=== PATIENT | male | born 1960 | race Caucasian/White ===

== ENCOUNTER 2019-08-08 21:27 | Observation (INO) | payer OTHER, SELFPAY ==
[2019-08-08 20:00] VITALS: BP 154/86; PULSE 73; RESP 16; TEMP 36.8; O2SAT 98; BMI 20.5
[2019-08-08 20:14] VITALS: PULSE 74
[2019-08-08 20:24] VITALS: BMI 20.6
--- NOTE | 2019-08-08 20:45 | PCM.HP.STD ---
Problem List (1) Chest pain Status: Acute History of Present Illness Date of Admission: 08/08/19 Chief Complaint: chest pain The patient is a 59 year old M with a significant history of hypertension who presented with excruciating episodic substernal chest pain that radiates to his right. His chest pain began a day before presentation. On the first day his chest pain started just after eating dinner. The next day which the day of presentation he went to work and because of chest pain he passed out. [facility] ED he was given 4 baby aspirin. Also he received nitroglycerin. His chest pain is relieved by taking Rere-Zamora. Also nitroglycerin gave him some relief. Associated with his symptoms is nausea. He denies vomiting. Also he has some associated diaphoresis. In June 2019 he was evaluated at a pulmonary hospital with an EGD. The EGD showed hiatal hernia. Also patient reports of acid reflux. Further he had normal stress test in June 2019 at [facility]. Patient was transferred to our hospital as other hospitals in the vicinity were full. Of note patient's father had multiple heart attacks with his first heart attack in his early 50s. His father eventually at age 67 from what appeared to be congestive heart failure. Past Medical History Medical History: Medical History GERD (gastroesophageal reflux disease) K21.9 HTN (hypertension) I10 Allergies Penicillins [PCN] Allergy (Verified 08/08/19 20:24) Rash Home Medications: Ambulatory Orders Medication Instructions Recorded ALPRAZolam [Xanax] 1 mg PO QHS 08/08/19 Amlodipine [Norvasc] 10 mg PO DAILY 08/08/19 Atenolol 50 mg PO DAILY 08/08/19 Atorvastatin Calcium [Lipitor] 10 mg PO QHS 08/08/19 Chlorthalidone 12.5 mg PO DINNER 08/08/19 Iron Carbonyl [Feosol] 65 mg PO DINNER 08/08/19 Losartan Potassium [Cozaar] 100 mg PO DAILY 08/08/19 Omeprazole [Prilosec] 20 mg PO DINNER 08/08/19 Surgical History: appendectomy, cholecystectomy, - - back surgery Lives: Spouse/ Significant Other Smoking Status: Current every day smoker Tobacco Use: Cigarettes Alcohol: None - *Family History Maternal History Items: Hypertension Paternal History Items: Heart Disease Review of Systems Constitutional: Denies: Chills, Fever, Weight Change HEENT: Denies: Head Aches, Sinus Congestion, Sinus Drainage Cardiovascular: Reports: Chest Pain, Syncope. Denies: Palpitations Respiratory: Denies: Cough, Shortness of breath at rest, Sputum production Gastrointestinal: Reports: Nausea. Denies: Abdominal Pain, Vomiting Genitourinary: Denies: Dysuria Musculoskeletal: Denies: Joint Pain, Joint Tenderness Skin: Denies: Rash, Wounds Neurological: Denies: Numbness, Tingling, Focal weakness Psychiatric: Denies: Anxiety, Depression, Homicidal Ideations, Suicidal Ideations Hematologic/ Lymphatic: Denies: Easy Bruising, Easy Bleeding VTE Information - Inpt Only VTE Present on Admission: No VTE Mechan Device Prophylaxis: SCD's VTE Pharm Prophylaxis ordered?: No Patient Problems: Active and Suspected Problems Chest pain (Acute) - Physical Exam Vitals/I&O's: Vital Signs Temp Pulse Resp BP Pulse Ox 98.2 F 73 16 154/86 H 98 08/08/19 20:00 08/08/19 20:00 08/08/19 20:00 08/08/19 20:00 08/08/19 20:00 Oxygen Delivery Method Room Air Weight: 56.1 kg Body Mass Index (BMI) 20.5 General: Alert, Oriented x3, Cooperative HEENT: Atraumatic, PERRLA, EOMI, Normocephalic Neck: Supple, No JVD, Negative Carotid Bruits Lungs: Clear to auscultation, Normal air movement Cardiovascular: Regular rate, Normal S1, Normal S2, No murmurs Abdomen: Bowel Sounds Present, Soft, Non Tender Extremities: No edema, Capillary Refill Less than 3 Seconds Skin: No rashes, No breakdown Musculoskeletal: No Tenderness to Palpation of Joints or Extremities Neurological: Cranial nerves II-XII grossly intact Psych/Mental Status: Normal Affect, Appropriate Assessment/Plan All Active Problems Chest pain (Acute) The patient is a 59 year old M with a significant history of hypertension; tobacco abuse and a strong family history of heart disease who presented with excruciating episodic substernal chest pain. Chest Pain Place on a monitored bed at [facility] CXR was unremarkable. Chest x-ray was independently reviewed. EKG independently reviewed confirms LVH and mild QTC prolongation. ASA 81 mg p.o. daily NTG 0.4 mg ointment ordered We will check lipid panel. Statin: On home Lipitor; low dose. Escalate to high intensity statin. Serial cardiac enzymes. Initial cardiac enzymes at outside hospital was unremarkable. Troponin was 0.01. Stat EKG as needed for chest pain Since patient had an unremarkable stress test about a month ago we will consult cardiology. Meanwhile we will escalate his Protonix. His heart score is five-point; moderate score; (moderately to moderately suspicious; nonspecific repolarization disturbance; age 45-64; more than 3 risk factors (hypertension; smoker; positive family history) risk of MACE OF 12-16% Hypokalemia: His potassium was 3.2 on presentation. This could be due to chlorthalidone use. Replace and trend. Check magnesium. QTC prolongation: His QTC on EKG is 458. Avoid QTC prolongation drugs. Check magnesium. Hyperlipidemia: Statin as above. Anemia: Iron supplementation continued Hypertension On presentation his blood pressure was not within goal Atenolol; amlodipine; and chlorthalidone continued. Insomnia: Xanax nightly Tobacco abuse: Counseled DVT prophylaxis SCD for now; pending cardiology eval Code Visit OBSV E&M: 87634 Initial observation care L3
[2019-08-08 21:08] VITALS: BP 144/77; PULSE 62; RESP 18; O2SAT 98
[2019-08-08 22:56] VITALS: BP 144/77; PULSE 62
[2019-08-08] MEDS: Atorvastatin Calcium 80 MG Tablet PO (22:56)
[2019-08-08] MEDS: ALPRAZolam 0.5 MG Tablet 1 MG PO (22:56)
[2019-08-08] MEDS: Nitroglycerin Oint 1 INCH PACKET 0.5 INCH TRANSDERM. (22:56)
[2019-08-08 23:10] VITALS: PULSE 56
[2019-08-09] VITALS (11 sets, daily range): BP systolic 117–151; BP diastolic 70–89; PULSE 57–79; RESP 14–18; TEMP 36.6–36.9; O2SAT 96–100
--- NOTE | 2019-08-09 | NURSING ---
at 2100 pt developed sudden epigastric chest pain 5/10 that did not radiate. felt slightly SOB and dizzy. pain similar to pain he felt earlier in the day. this pain was stabbing, and came on suddenly. called [facility], [facility] for EKG and notified MD who arrived to admit pt. the pain subsided on its own back to 0/10.
[2019-08-09] MEDS: Acetaminophen 325 MG Tablet 650 MG PO (01:10)
[2019-08-09 03:16] LABS: Absolute Neutrophil Count 5.4 X10^3/uL (2.0-7.7); Basophil# 0.07 X10^3/uL; Basophil% 0.8 % (0-1); Eosinophil# 0.35 X10^3/uL; Eosinophils% 4.2 % (0-5); Hematocrit 31.1 % (40-54); Hemoglobin 9.8 g/dL (13.0-16.5); Lymphocyte % 21.5 % (19-41); Mean Corp Hgb Conc 31.5 g/dL (32-36); Mean Corpuscular Hgb 25.1 pg (27.0-32.0); Mean Corpuscular Volume 79.5 fL (80-94); Mean Platelet Vol. 9.4 fl (6.2-12.0); Monocyte# 0.72 X10^3/uL; Monocyte% 8.6 % (0-10); NRBC Flagged by Analyzer 0 % (0-5); Neutrophil # 5.43 X10^3/uL (2.7-7.7); Neutrophil % 64.7 % (47-70); POSITIVE MORPHOLOGY YES; Platelet Count 366 K/mm3 (150-450); RBC Distribution Width SD 59.4 fl (35.1-43.9); Red Blood Count 3.91 M/mm3 (4.6-6.2); White Blood Count 8.4 K/mm3 (4.4-11.0)
[2019-08-09 03:18] LABS: Differential Indicated SCAN CRITERIA MET
[2019-08-09 03:48] LABS: Anion Gap 4 (5-15); BUN 22 mg/dL (7-18); BUN/Creat Ratio 12.6 RATIO (10-20); Calcium,Total 8.4 mg/dL (8.5-10.1); Chloride 108 mmol/L (98-107); Creatinine, Serum 1.74 mg/dL (0.70-1.30); EST Glomerular Filtration Rate 43 mL/min (>60); Est Glom Filt Rate - Afr Amer 52 mL/min (>60); Estimated Creatinine Clearance 36.72 ml/min; Glucose 106 mg/dL (74-106); Potassium 3.2 mmol/L (3.5-5.1); Sodium Level 143 mmol/L (136-145)
[2019-08-09 05:43] LABS: Differential Comment SCANNED
[2019-08-09 05:44] LABS: Acanthocytes RARE; Hypochromasia 3+; Microcytosis 2+; Ovalocyte 1+; Platelet Estimate MOD INC (ADEQ); Target Cells 1+
[2019-08-09] MEDS: Nitroglycerin Oint 1 INCH PACKET 0.5 INCH TRANSDERM. ×2 (05:50→11:09)
[2019-08-09] MEDS: Potassium Chloride 10mEq/100mL 10 MEQ/100 ML IV.SOLN. 100 MEQ IV BOLUS ×2 (05:55→07:01)
[2019-08-09] MEDS: 0.9% Saline Lock 10 ML Syringe IV ×2 (05:55)
[2019-08-09 06:14] LABS: Cholesterol 138 mg/dL (200); High Density Lipoprotein 38 mg/dL; Triglycerides 151 mg/dL; Very Low Density Lipoprotein 30 mg/dL (5-40)
[2019-08-09] MEDS: Morphine 2 MG/ML Syringe IV (06:56)
[2019-08-09 07:37] LABS: D-Dimer Quantitative (DVT/PE) 0.63 FEU/ug/m (0.27-0.49)
[2019-08-09 08:04] LABS: Erythrocyte Sedimentation Rate 20 mm/hr (0-20)
--- NOTE | 2019-08-09 08:05 | PN_ITS ---
Patient Problems: Active and Suspected Problems (Last Updated 08/09/19 @ 06:00 by Deejay Pederson MD) Chest pain (Acute) Subjective: Chief complaint: Follow-up after admission for chest pain for evaluation. Patient seen and examined. No acute events overnight. This morning, he is complaining of chest pain, retrosternal, 8 out of 10 in severity, not radiating, associated with mild shortness of breath. Denied nausea or vomiting. Denied heartburn. Stat EKG done and showed no acute or new ischemic changes. His vital signs are stable. - Physical Exam Vitals/I&O's: Vital Signs Temp Pulse Resp BP Pulse Ox 98.5 F 64 14 117/70 96 08/09/19 05:47 08/09/19 07:30 08/09/19 05:47 08/09/19 05:50 08/09/19 05:47 Oxygen Delivery Method Room Air Weight: 123 lb 10.869 oz Body Mass Index (BMI) 20.5 Intake and Output for Last 24 Hours 08/07/19 08/08/19 08/09/19 23:59 23:59 23:59 Intake Total 940 / 940 Output Total 900 / 900 Balance 40 / 40 General: Alert, Oriented x3, Cooperative, No apparent distress HEENT: Atraumatic, PERRLA, EOMI, Normocephalic Oral: Moist Mucosa, No Gingival or Mucosal Lesions/ Ulcerations Neck: Supple, No JVD, Negative Carotid Bruits, Trachea Midline, Thyroid Normal Size and Texture Lungs: Clear to auscultation, Normal air movement, No rhonchi, No wheeze, No rales, Diminished Cardiovascular: Regular rate, Regular Rhythm, Normal S1, Normal S2, PMI Normal Abdomen: Bowel Sounds Present, Soft, Non Tender, Non-Distended, No Hepato- splenomegaly Extremities: No clubbing, No cyanosis, No edema Skin: No rashes, No breakdown Lymphatic: No Cervical, Supraclavicular, or Inguinal Adenopathy Neurological: Cranial nerves II-XII grossly intact, Neuro grossly intact Psych/Mental Status: Normal Affect, Appropriate, Alert and oriented to time, vesta ce, person, mood and affect Laboratory Results 08/08/19 20:48: Troponin I < 0.015 08/08/19 23:00: Troponin I < 0.015 08/09/19 02:50: Troponin I < 0.015 08/09/19 02:50: WBC 8.4, RBC 3.91 L, Hgb 9.8 L, Hct 31.1 L, MCV 79.5 L, MCH 25.1 L, MCHC 31.5 L, RDW Std Deviation 59.4 H, RDW Coeff of Darius 21.0 H, Plt Count 366, MPV 9.4, Immature Gran % (Auto) 0.200, Neut % (Auto) 64.7, Lymph % (Auto) 21.5, Mercer % (Auto) 8.6, Eos % (Auto) 4.2, Baso % (Auto) 0.8, Absolute Neuts (auto) 5.4, Absolute Lymphs (auto) 1.80, Nucleated RBC % 0, Differential Comment SCANNED, Platelet Estimate MOD INC, Hypochromasia 3+, Microcytosis 2+, Target Cells 1+, Ovalocytes 1+, Acanthocytes (Spur) RARE 08/09/19 02:50: Sodium 143, Potassium 3.2 L, Chloride 108 H, Carbon Dioxide 31.0, Anion Gap 4 L, BUN 22 H, Creatinine 1.74 H, Estim Creat Clear Calc 36.72, Est GFR (MDRD) Af Amer 52 L, Est GFR (MDRD) Non-Af 43 L, BUN/Creatinine Ratio 12.6, Glucose 106, Calcium 8.4 L 08/09/19 02:50: Magnesium 2.0, Triglycerides 151, Cholesterol 138, LDL Cholesterol 70, VLDL Cholesterol 30, HDL Cholesterol 38 L 08/09/19 02:50: ESR 20 08/09/19 02:50: D-Dimer Quant (PE/DVT) 0.63 H* Current Medications Acetaminophen (Tylenol) 650 mg PO Q6H PRN PRN PRN Reason: Pain Score 1-10/Temp > 100.7 F Last Admin: 08/09/19 01:10 Dose: 650 mg Documented by: Alprazolam (Xanax) 1 mg PO QHS [facility] Last Admin: 08/08/19 22:56 Dose: 1 mg Documented by: Amlodipine Besylate (Norvasc) 10 mg PO DAILY [facility] Aspirin (Ecotrin) 81 mg PO DAILY@0800 [facility] Atenolol (Tenormin (Beta Apple)) 50 mg PO DAILY [facility] Atorvastatin Calcium (Lipitor) 80 mg PO QHS [facility] Last Admin: 08/08/19 22:56 Dose: 80 mg Documented by: Chlorthalidone (Hygroton) 12.5 mg PO DINNER [facility] Dextrose (D50w Syringe) 0 gm IV X1 PRN; Protocol PRN Reason: Hypoglycemia Glucagon () 1 mg IM .X1 PRN PRN Reason: Hypoglycemia Sodium Chloride () 1,000 mls @ 100 mls/hr IV .Q10H [facility] Iron (Feosol) 45 mg PO DINNER [facility] Losartan Potassium (Cozaar) 100 mg PO DAILY [facility] Melatonin (Melatonin) 3 mg PO QHS PRN PRN PRN Reason: INSOMNIA Morphine Sulfate () 2 mg IV Q4H PRN PRN PRN Reason: chest pain Last Admin: 08/09/19 06:56 Dose: 2 mg Documented by: Nitroglycerin (Nitrobid) 0.5 inch TRANSDERM. Q6 [facility] Last Admin: 08/09/19 05:50 Dose: 0.5 inch Documented by: Nutritional Formula (Lactose Free) (Ensure Enlive) 120 ml PO 4X/DAY [facility] Pantoprazole Sodium (Protonix) 40 mg PO DINNER [facility] Sodium Chloride () 10 - 40 ml IV UD PRN PRN Reason: SALINE FLUSH Last Admin: 08/09/19 05:55 Dose: 10 ml Documented by: Medical Necessity - Tobacco Use Smoking Status: Current every day smoker Tobacco Use: Cigarettes Assessment/Plan All Active Problems (Last Updated 08/09/19 @ 06:00 by Deejay Pederson MD) Chest pain (Acute) This is a 59 years old male patient admitted directly from outside facility for chest pain for evaluation. #1 chest pain: EKG without acute segment changes. Troponin has been negative x2 here and it was negative at the outside facility. Patient continued to have chest pain this morning, was crying. Received 1 dose of IV morphine and he got better. Repeat stat EKG was unremarkable. He is on aspirin, statins and atenolol as well as losartan. His vital signs are stable. Reportedly, patient had a stress test done 1 month ago at outside facility and was unremarkable according to the patient. Cardiology consulted. Apparently, stress echocardiogram was canceled and plan for cardiac catheterization tomorrow. #2 elevated d-dimer: Unclear etiology. CTA chest and CT abdomen and pelvis was unremarkable, no PE or dissection. Patient is not tachycardic, no hypoxia. #3 hypertension: Blood pressure stable, continue Norvasc, atenolol and losartan. #4 hyperlipidemia: Continue statins. #5 peptic ulcer disease/GERD: Stable, continue Protonix. #6 renal insufficiency: Unclear if this is acute or chronic. Patient's mentioned that he does have some sort of kidney disease in the past according to his PCP. Admission creatinine is 1.74, unknown baseline. Patient is on IV fluids, plan to repeat BMP tomorrow morning. #7 chronic anemia: Patient's mentioned that he had upper endoscopy and colonoscopy around 1 month ago, found to have ulcer in the upper GI tract and they attributed the anemia to that ulcer but it was not bleeding. Hemoglobin is 9.8 g/dL. No evidence of active bleeding. Patient is on iron supplement. #8 DVT prophylaxis: Low risk patient, no prophylaxis indicated. This note was generated with [employer] dictation software. It may contain incorrect words, spelling, and punctuation that were not noted in checking the note before signing. Code Visit Inpatient E&M: 65856 Subs Hosp L2 OBSV E&M: 84392 Subsequent observation care L2
[2019-08-09] MEDS: Losartan Potassium 100 MG Tablet PO (08:15)
[2019-08-09] MEDS: Aspirin E.C. 81 MG Tablet PO (08:15)
--- NOTE | 2019-08-09 08:42 | CT_ITS ---
STUDY: CTA CHEST REASON FOR EXAM: Male, 59 years old. Chest pain and nausea. RADIATION DOSAGE (If Supplied By Facility): CTDIvol = ( 6.57 ) mGy, DLP = ( 471.06 ) mGycm TECHNIQUE: The examination was performed with the intravenous administration of [id number]. Post-processing of the angiographic images was performed, with multiplanar reformation and 3D reconstruction. Individualized dose optimization techniques were used for this CT. COMPARISON: None. FINDINGS: Normal enhancement of the main pulmonary artery and right and left pulmonary arteries. Normal enhancement of the bilateral peripheral pulmonary arteries. There is no demonstrated pulmonary embolism. Normal thoracic aorta and visualized great vessels. There is no demonstrated aortic dissection. Normal heart and pericardium. Normal mediastinum. Normal hilar regions. Normal visualized trachea and bronchi. The lungs are well expanded. Minimal degree of dependent bibasilar atelectasis. Normal pleura. Normal chest wall structures. There are degenerative changes of thoracic spine. Small hiatal hernia. Prior cholecystectomy. CT/CTA Chest W/WO Contrast IMPRESSION: No evidence of pulmonary embolism. Mild degree of dependent bibasilar atelectasis. Electronically Signed: Suraj Yuen, at 10:19 EST , Service support ,
--- NOTE | 2019-08-09 08:42 | CT_ITS ---
STUDY: CTA OF THE ABDOMINAL AORTA AND BILATERAL LOWER EXTREMITIES REASON FOR EXAM: Male, 59 years old. Chest pain and nausea. Possible pulmonary embolism. RADIATION DOSAGE (If Supplied By Facility): CTDIvol = ( 6.57 ) mGy, DLP = ( 471.06 ) mGycm TECHNIQUE: Axial CT angiography multi-detector data acquisition was obtained from the dome of the liver to the symphysis pubis following intravenous administration of IV 100mL [id number]. Axial images and MIP images were reconstructed from the axial data set. Post-processing of the angiographic images was performed, with multiplanar reformation and 3D reconstruction. Individualized dose optimization techniques were used for this CT. TECHNICAL QUALITY: Good COMPARISON: None. Descriptors of Narrowing: None (0%) Mild (< 50%) Moderate (50-70%) Severe (70-90%) Subtotal/Total Occlusion (90-100%) Non-Evaluable (technically non-diagnostic FINDINGS: Minimal increased markings at the lung bases suggestive of dependent bibasilar atelectasis. Small hiatal hernia. The patient is status post cholecystectomy. Mild dilatation of the common bile duct probably transverse diameter of 1 cm. Abdominal aorta: Atherosclerotic plaque formation of the infrarenal abdominal aorta without evidence of aneurysmal dilatation. Minimal mural thrombus is seen along the posterior right side of the distal aorta. Celiac and superior mesenteric arteries: No demonstrated narrowing. Inferior mesenteric artery: No demonstrated narrowing. Right renal artery(arteries): No demonstrated narrowing. Left renal artery(arteries): No demonstrated narrowing. Right common iliac artery: Atherosclerotic plaque formation. Right external iliac artery: Atherosclerotic plaque formation. Right internal iliac artery: No demonstrated narrowing. Left common iliac artery: Atherosclerotic plaque formation. Left external iliac artery: Atherosclerotic plaque formation. Left internal iliac artery: No demonstrated narrowing. CT/CTA Abdomen W/WO Contrast IMPRESSION: Atherosclerotic plaque formation of the abdominal aorta and both common iliac arteries without any aneurysm or significant stenosis. Electronically Signed: Suraj Yuen, at 10:14 EST , Service support ,
[2019-08-09] MEDS: Morphine 2 MG/ML Syringe 1 MG IV (08:52)
--- NOTE | 2019-08-09 10:50 | PCM.CONS.C ---
<Nathalie Guillen M - Last Filed: 08/09/19 10:50> Problem List (1) Hyperlipidemia Status: Chronic (2) Hypertension Status: Chronic (3) Chest pain Status: Acute Reason for Consult Date of Consultation: 08/09/19 Reason for Consultation: chest pain History of Present Illness: The patient is a 59 year old M that presented to our hospital yesterday for further evaluation of chest pain. Patient states that over the last several days he has had discomfort in the midsternal epigastric area. He rates it as sharp and stabbing. He states that it waxes and wanes. He states that it has never really gone away. At times at home he is used [place] which has helped somewhat. However yesterday it has significantly worsened. is also concerned about the fact that this is worsened over the last 2 days. He states that at this time of consult that his pain is a 5 out of 10. Patient is resting comfortably. He does note that earlier this morning while we are consulted it was a 10 out of 10 and he was in significant discomfort. Yesterday, He states that his coworkers informed him that he passed out, he does not recall this as he was in significant pain. He presented to an outside hospital for further work-up. Because they did not have any beds at outside hospital he was transferred here. He does not note that he has had shortness of breath with his discomfort. He does note that occasionally his right leg will swell, he also notes that he has had some dark stools. Patient tells me that he has had this discomfort for the last several weeks. He has been worked up by his primary care doctor for this and they did do a stress test at [facility] which was normal per patient. He does have a past medical history significant for hypertension, hyperlipidemia, esophageal reflux disease. It is noted that upon admission his hemoglobin is 9.8, potassium was 3.2, BUN 22, creatinine 1.74, d-dimer 0.63, negative troponins. Past Medical History Allergies/Adverse Reactions: Allergies Penicillins [PCN] Allergy (Verified 08/08/19 20:24) Rash Home Medications: Ambulatory Orders Medication Instructions Recorded ALPRAZolam [Xanax] 1 mg PO QHS 08/08/19 Amlodipine [Norvasc] 10 mg PO DAILY 08/08/19 Atenolol 50 mg PO DAILY 08/08/19 Atorvastatin Calcium [Lipitor] 10 mg PO QHS 08/08/19 Chlorthalidone 12.5 mg PO DINNER 08/08/19 Iron Carbonyl [Feosol] 65 mg PO DINNER 08/08/19 Losartan Potassium [Cozaar] 100 mg PO DAILY 08/08/19 Omeprazole [Prilosec] 20 mg PO DINNER 08/08/19 Past Medical History (Chronic Problems): Chronic Problems (Last Updated 08/09/19 @ 06:00 by Deejay Pederson MD) Chronic kidney disease (CKD) (Chronic) GERD (gastroesophageal reflux disease) (Chronic) Peptic ulcer disease (Chronic) Hyperlipidemia (Chronic) Hypertension (Chronic) Surgical History: appendectomy, cholecystectomy, - - back surgery - *Family History Maternal History Items: Hypertension Paternal History Items: Heart Disease Lives: Spouse/ Significant Other Smoking Status: Current every day smoker Tobacco Use: Cigarettes Alcohol: None Review of Systems - Review of Systems General: Denies: Fever, Fatigue, Weakness HEENT: Denies: Vision Change, Blurred Vision Cardiovascular: Reports: Chest Discomfort - see HPI, Shortness of Breath - see hpi, Peripheral Edema - sometimes on R, Syncope - see HPI. Denies: Palpitations, Lightheadedness, Dizziness Respiratory: Reports: Shortness of Breath Gastrointestinal: Reports: Indigestion, Heart Burn, Epigastric Discomfort, Melena Genitourinary: Denies: Dysuria Muscoloskeletal: Denies: Myalgias, Muscle Weakness, Muscle Cramps Skin: Denies: Rash Neurological: Denies: Dizziness, Vertigo, Confusion, Falls, Decreased Coordination, Weakness, Tremors Psychiatric: Denies: Anxiety, Depression Objective: Vital Signs Temp Pulse Resp BP Pulse Ox 98.4 F 64 18 118/70 96 08/09/19 08:09 08/09/19 08:09 08/09/19 08:09 08/09/19 08:09 08/09/19 08:32 Oxygen Delivery Method Room Air Weight: 123 lb 10.869 oz Body Mass Index (BMI) 20.5 Intake and Output for Last 24 Hours 08/07/19 08/08/19 08/09/19 23:59 23:59 23:59 Intake Total 1040 / 1040 Output Total 900 / 900 Balance 140 / 140 General: Awake, Alert, Oriented x 3, Cooperative, No Acute Distress HEENT: Atraumatic, Normocephalic, PERRL, Sclera Non Icteric Oral: Moist Mucosa Neck: Supple, No JVD Lungs: Clear to auscultation Cardiovascular: Regular Rhythm, Normal S1, Normal S2, No Murmurs, No Rubs, No Gallops Vascular: No Carotid Bruits Abdomen: Bowel Sounds Present, Soft, Non Tender, No Organomegaly, Non Distended Extremities: No Cyanosis, No Clubbing, No edema, Normal Capillary Refill Neurological: No Focal Motor or Sensory Deficit, CN II-XII Intact Psych/Mental Status: Appropriate, Normal Affect 08/08/19 20:48: Troponin I < 0.015 08/08/19 23:00: Troponin I < 0.015 08/09/19 02:50: Troponin I < 0.015 08/09/19 02:50: WBC 8.4, RBC 3.91 L, Hgb 9.8 L, Hct 31.1 L, MCV 79.5 L, MCH 25.1 L, MCHC 31.5 L, Plt Count 366, MPV 9.4, Immature Gran % (Auto) 0.200, Neut % (Auto) 64.7, Lymph % (Auto) 21.5, Avery % (Auto) 8.6, Eos % (Auto) 4.2, Baso % (Auto) 0.8, Absolute Neuts (auto) 5.4, Nucleated RBC % 0 08/09/19 02:50: Sodium 143, Potassium 3.2 L, Chloride 108 H, Carbon Dioxide 31.0, Anion Gap 4 L, BUN 22 H, Creatinine 1.74 H, Est GFR (MDRD) Af Amer 52 L, Est GFR (MDRD) Non-Af 43 L, BUN/Creatinine Ratio 12.6, Glucose 106, Calcium 8.4 L 08/09/19 02:50: Magnesium 2.0, Triglycerides 151, Cholesterol 138, LDL Cholesterol 70, VLDL Cholesterol 30, HDL Cholesterol 38 L 08/09/19 02:50: D-Dimer Quant (PE/DVT) 0.63 H* Rhythm: EKG: ECHO: Stress Test: Cardiac Cath: PCI: CT Surgery: Holter monitor: EPS: PPM: CXR: Chest CT Scan: Assessment/Plan 1. Chest discomfort: Patient's troponins are negative. He is scheduled to have a CTA of his chest and abdomen with his elevated d-dimer. Based upon these findings will further cardiac chest discomfort work-up. 2. Hypertension: Patient will continue with his current blood pressure medications. 3. Hyperlipidemia: Patient will continue with his current dose of statin. 4. Hypokalemia: Patient was noted to be hypokalemic upon admission. He was given a potassium supplement. Would continue to further monitor. 5. Renal insufficiency: Creatinine is 1.74. Would recommend continued monitoring. He is currently receiving IV fluids. 6. Anemia: unsure if this is new, with his statement of darker stools would consider occult stool This case is continue to be discussed with Dr. Centeno. <Luca Centeno - Last Filed: 08/09/19 15:55> Problem List (1) Peptic ulcer disease Status: Chronic (2) Hyperlipidemia Status: Chronic (3) Hypertension Status: Chronic (4) Chest pain Status: Acute Reason for Consult History of Present Illness: Interventional cardiology addendum: Patient seen and examined in conjunction with Nathalie Guillen and agree with above. Patient is a 59-year-old [facility] gentleman, nondiabetic, currently smoking tobacco about half a pack a day for the past 40 years, no known cardiac history, catheterization with associated hypertension, hiatal hernia, and peptic ulcer disease status post recent EGD at an outside facility which discovered gastric ulcers and is hiatal hernia. Patient was treated with PPI therapy as well as antihypertensive therapy, and he was doing well up until yesterday morning around 11 AM when he developed severe substernal chest pain similar to his previous ulcer pain, which was sharp, stabbing, and without radiation. Apparently the pain was so bad that he feels as though he passed out at work, and was brought to the emergency room. Patient was brought to [facility] and was to be transferred [facility] but unfortunately did not have any beds, and he was transferred to [facility]. In the emergency room an EKG was performed which showed normal sinus rhythm, normal axis, normal intervals, and no evidence of acute changes. His troponins were negative x3. His d-dimer was elevated at [facility] and again rechecked here at [facility] also found to be elevated 0.63. I was called by the nurse with the patient in excruciating 10 out of 10 chest pain with loud shouting, and he was immediately transported to CT for CTA. 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 He was to have an echo and stress test but this was aborted for his CTA. Currently the patient is resting comfortably, and chest pain-free. He reports he is compliant with his medications. [] Subjectve: Patient resting comfortably, no acute distress. Objective: Vital Signs Temp Pulse Resp BP Pulse Ox 97.9 F 78 18 145/89 H 100 08/09/19 13:57 08/09/19 13:57 08/09/19 13:57 08/09/19 13:57 08/09/19 13:57 Oxygen Flow Rate (L/min) 2 Oxygen Delivery Method Nasal Cannula Weight: 123 lb 10.869 oz Body Mass Index (BMI) 20.5 Intake and Output for Last 24 Hours 08/07/19 08/08/19 08/09/19 23:59 23:59 23:59 Intake Total 1417.08 / 1417.08 Output Total 1400 / 1400 Balance 17.08 / 17.08 General: Awake, Alert, Oriented x 3 HEENT: PERRL, EOMI, Sclera Non Icteric Neck: Supple, Good ROM, No Lymph Node Enlargement Lungs: Clear to auscultation Cardiovascular: Regular Rhythm, Normal S1, Normal S2, No Murmurs, No Rubs, No Gallops Vascular: No Carotid Bruits, Normal Femoral Pulses, Normal Radial Pulses, Normal Dorsalis Pedal Pulse, Normal Posterior Tibial Pulses Abdomen: Bowel Sounds Present, Soft, Non Tender, No HSM, No Organomegaly Extremities: No Cyanosis, No Clubbing, No edema Neurological: No Focal Motor or Sensory Deficit 08/08/19 20:48: Troponin I < 0.015 08/08/19 23:00: Troponin I < 0.015 08/09/19 02:50: Troponin I < 0.015 08/09/19 02:50: WBC 8.4, RBC 3.91 L, Hgb 9.8 L, Hct 31.1 L, MCV 79.5 L, MCH 25.1 L, MCHC 31.5 L, Plt Count 366, MPV 9.4, Immature Gran % (Auto) 0.200, Neut % (Auto) 64.7, Lymph % (Auto) 21.5, Avery % (Auto) 8.6, Eos % (Auto) 4.2, Baso % (Auto) 0.8, Absolute Neuts (auto) 5.4, Nucleated RBC % 0 08/09/19 02:50: Sodium 143, Potassium 3.2 L, Chloride 108 H, Carbon Dioxide 31.0, Anion Gap 4 L, BUN 22 H, Creatinine 1.74 H, Est GFR (MDRD) Af Amer 52 L, Est GFR (MDRD) Non-Af 43 L, BUN/Creatinine Ratio 12.6, Glucose 106, Calcium 8.4 L 08/09/19 02:50: Magnesium 2.0, Triglycerides 151, Cholesterol 138, LDL Cholesterol 70, VLDL Cholesterol 30, HDL Cholesterol 38 L 08/09/19 02:50: D-Dimer Quant (PE/DVT) 0.63 H* Rhythm: EKG: As above ECHO: Pending Stress Test: Pending Cardiac Cath: PCI: CT Surgery: Holter monitor: EPS: PPM: CXR: Chest CT Scan: Assessment/Plan Assessment/recommendations: The patient's chest pain does not appear to be cardiac in origin at this time but rather most likely recurrence of his peptic ulcer disease and/or sliding hiatal hernia. Patient reports he had some black tarry stools however he is on iron therapy for his anemia. He has ruled out for myocardial infarction. I recommend the patient be treated with IV PPI therapy in order to completely turn off any acid production in his stomach which may be contributing to his chest pain symptoms. In addition I recommend he undergo a 2D echo with Doppler to document his LV function and pulmonary pressures as well as a treadmill echocardiogram to assess for ischemia. I would not recommend aspirin and Plavix for his distal aorta mural thrombus at this time as he has a history of optic ulcer disease and GI upset which may be exacerbated by dual antiplatelet therapy. If his stress test is grossly abnormal, the patient may require diagnostic coronary angiogram, probably with a long sheath or via radial approach to avoid irritation of his distal aorta mural thrombus. If his stress test is negative, I would not pursue any additional invasive evaluation at this time. Would also recommend GI consultation for repeat EGD, and possible barium swallow test to determine the severity of his hiatal hernia. 2. Hyperlipidemia: Continue statin based therapy, obtain a fast lipid profile. 3. Thank you very much for the opportunity to participate in the cardiac care of your patient. Discussed case with Dr. Boucher and reviewed CT scan myself with Dr. Yuen. Consultation took place between 3 PM and 3:30 PM. Code Visit Inpatient E&M: 77658 Subs Hosp L2
[2019-08-09] MEDS: 0.9% Normal Saline 1,000 ML 125 ML IV ×3 (11:08→22:37)
[2019-08-09] MEDS: Atenolol 50 MG Tablet PO (11:12)
[2019-08-09] MEDS: amLODIPine 10 MG Tablet PO (11:12)
[2019-08-09] MEDS: Acetylcysteine (Mucomyst Oral) 20% SOLN 1200 MG PO ×2 (12:11→21:53)
--- NOTE | 2019-08-09 15:47 | ECHOD_ITS ---
Reason For Study: chest pain Procedure This was a 2D Doppler, Color Flow transthoracic echocardiogram. Exam performed in department. Left Ventricle Normal size and thickness. The estimated ejection fraction is 65 %. Normal diastology for age. No regional wall motion abnormalities noted. Right Ventricle Mildly dilated right ventricle. Normal systolic function. Atria Normal left atrium. Normal right atrium. Normal atrial septum. Mitral Valve Mild diffuse mitral valve thickening. Mild (1+) mitral valve insufficiency. Tricuspid Valve Normal tricuspid valve. Trivial tricuspid valve insufficiency. Right ventricular systolic pressure estimated to be 32 mmHg. Aortic Valve Normal aortic valve. Trisinus/trileaflet aortic valve. Pulmonic Valve Normal pulmonic valve. Great Vessels Normal aortic root. Normal arch. Normal inferior vena cava. Inferior vena cava collapse with sniff. Pericardium/Pleural No pericardial effusion. MMode/2D Measurements & Calculations LVIDd: 4.4 cm IVSd: 0.99 cm Ao root diam: 3.5 cm LVIDs: 3.2 cm LVPWd: 0.94 cm RVDd: 3.7 cm FS: 27.4 % LAV(MOD-bp): 54.7 ml LVAd ap4: 33.9 cm2 SV(MOD-sp4): 60.0 ml LAV(MOD-bp) Indexed: 34.0 ml/m2 EDV(MOD-sp4): 104.7 ml LAV(MOD-sp2): 54.1 ml EDV(sp4-el): 113.3 ml LAV(MOD-sp4): 49.9 ml LVAs ap4: 19.7 cm2 ESV(MOD-sp4): 44.7 ml ESV(sp4-el): 46.6 ml EF(MOD-sp4): 57.3 % EF(sp4-el): 58.9 % SV(sp4-el): 66.7 ml LA A4 area: 18.7 cm2 LA dimension(2D): 3.7 cm RA A4 area: 16.6 cm2 Time Measurements MV dec time: 0.27 sec Doppler Measurements & Calculations MV E max thiago: 74.5 cm/sec Lat Peak E' Thiago: 10.9 cm/sec Med Peak E' Thiago: 7.6 cm/sec MV A max thiago: 52.9 cm/sec E/E' lat: 6.8 E/E' med: 9.8 MV E/A: 1.4 Ao V2 max: 105.6 cm/sec LV V1 max: 100.1 cm/sec TR max thiago: 259.6 cm/sec Ao max P.5 mmHg LV V1 max P.0 mmHg TR max P.0 mmHg Interpretation Summary The estimated ejection fraction is 65 %. Normal diastology for age. Mildly dilated right ventricle. Mild (1+) mitral valve insufficiency. Trivial tricuspid valve insufficiency. Right ventricular systolic pressure estimated to be 32 mmHg. There is no comparison study available. Ordering Physician: Luca Centeno Referring Physician: HANSEL QUINN Performed By: Shanita Gunter, XENA, RVT
[2019-08-09] MEDS: Chlorthalidone 50 MG Tablet 12.5 MG PO (16:20)
[2019-08-09] MEDS: Sucralfate 1 GM Tablet PO ×2 (17:11→21:32)
[2019-08-09] MEDS: ALPRAZolam 0.5 MG Tablet 1 MG PO (21:31)
[2019-08-09] MEDS: Atorvastatin Calcium 80 MG Tablet PO (21:31)
[2019-08-10] VITALS (9 sets, daily range): BP systolic 117–146; BP diastolic 65–82; PULSE 61–74; RESP 16–18; TEMP 36.7–37; O2SAT 97–99
[2019-08-10 05:42] LABS: Absolute Lymphocyte Count 1.54 X10^3/uL (0.83-4.51); Absolute Neutrophil Count 6.4 X10^3/uL (2.0-7.7); Basophil# 0.06 X10^3/uL; Basophil% 0.6 % (0-1); Eosinophils% 4.3 % (0-5); Hemoglobin 9.7 g/dL (13.0-16.5); Lymphocyte # 1.54 X10^3/ul (4.0); Lymphocyte % 16.6 % (19-41); Mean Corp Hgb Conc 30.3 g/dL (32-36); Mean Corpuscular Hgb 24.9 pg (27.0-32.0); Mean Corpuscular Volume 82.1 fL (80-94); Monocyte# 0.79 X10^3/uL; Monocyte% 8.5 % (0-10); NRBC Flagged by Analyzer 0 % (0-5); Neutrophil # 6.43 X10^3/uL (2.7-7.7); Neutrophil % 69.6 % (47-70); POSITIVE MORPHOLOGY YES; Platelet Count 368 K/mm3 (150-450); RBC Distribution Width CV 21.2 % (11.6-14.6); RBC Distribution Width SD 62.7 fl (35.1-43.9); White Blood Count 9.3 K/mm3 (4.4-11.0)
[2019-08-10 06:00] LABS: Anion Gap 7 (5-15); BUN 19 mg/dL (7-18); BUN/Creat Ratio 14.1 RATIO (10-20); Calcium,Total 8.3 mg/dL (8.5-10.1); Chloride 111 mmol/L (98-107); Creatinine, Serum 1.35 mg/dL (0.70-1.30); EST Glomerular Filtration Rate 58 mL/min (>60); Est Glom Filt Rate - Afr Amer 70 mL/min (>60); Estimated Creatinine Clearance 47.33 ml/min; Glucose 96 mg/dL (74-106); Sodium Level 144 mmol/L (136-145)
[2019-08-10 06:03] LABS: Differential Indicated SCAN CRITERIA MET
[2019-08-10] MEDS: Sucralfate 1 GM Tablet PO ×3 (06:09→15:03)
[2019-08-10] MEDS: Losartan Potassium 100 MG Tablet PO (06:09)
[2019-08-10] MEDS: Aspirin E.C. 81 MG Tablet PO (06:09)
[2019-08-10] MEDS: 0.9% Saline Lock 10 ML Syringe IV (06:41)
[2019-08-10] MEDS: 0.9% Normal Saline 1,000 ML 125 ML IV (06:42)
[2019-08-10 06:50] LABS: Anisocytosis 2+; Differential Comment SCANNED; Hypochromasia 1+
--- NOTE | 2019-08-10 08:55 | PN.CARD_ITS ---
Subjectve: Patient seen and examined this morning. No further chest pain like yesterday. Patient awaiting echo and stress echo this morning. IV Protonix drip in place and the patient feels much better Objective: Vital Signs Temp Pulse Resp BP Pulse Ox 98.6 F 64 17 125/79 H 99 08/10/19 06:45 08/10/19 07:18 08/10/19 06:45 08/10/19 06:45 08/10/19 06:45 Oxygen Flow Rate (L/min) 2 Oxygen Delivery Method Room Air Weight: 123 lb 10.869 oz Body Mass Index (BMI) 20.5 Intake and Output for Last 24 Hours 08/08/19 08/09/19 08/10/19 23:59 23:59 23:59 Intake Total 2755.91 / 2755.91 887.67 / 887.67 Output Total 2350 / 2350 900 / 900 Balance 405.91 / 405.91 -12.33 / -12.33 General: Awake, Alert, Oriented x 3 HEENT: PERRL, EOMI, Sclera Non Icteric Neck: Supple, Good ROM, No Lymph Node Enlargement Lungs: Clear to auscultation Cardiovascular: Regular Rhythm, Normal S1, Normal S2, No Murmurs, No Rubs, No Gallops Vascular: No Carotid Bruits, Normal Femoral Pulses, Normal Radial Pulses, Normal Dorsalis Pedal Pulse, Normal Posterior Tibial Pulses Abdomen: Bowel Sounds Present, Soft, Non Tender, No HSM, No Organomegaly Extremities: No Cyanosis, No Clubbing, No edema Neurological: No Focal Motor or Sensory Deficit 08/10/19 05:00: WBC 9.3, RBC 3.90 L, Hgb 9.7 L, Hct 32.0 L, MCV 82.1, MCH 24.9 L , MCHC 30.3 L, Plt Count 368, MPV 10.0, Immature Gran % (Auto) 0.400, Neut % (Auto) 69.6, Lymph % (Auto) 16.6 L, [place] % (Auto) 8.5, Eos % (Auto) 4.3, Baso % (Auto) 0.6, Absolute Neuts (auto) 6.4, Nucleated RBC % 0 08/10/19 05:00: Sodium 144, Potassium 4.0, Chloride 111 H, Carbon Dioxide 26.0, Anion Gap 7, BUN 19 H, Creatinine 1.35 H, Est GFR (MDRD) Af Amer 70, Est GFR (MDRD) Non-Af 58 L, BUN/Creatinine Ratio 14.1, Glucose 96, Calcium 8.3 L Rhythm: EKG: ECHO: Stress Test: Cardiac Cath: PCI: CT Surgery: Holter monitor: EPS: PPM: CXR: Chest CT Scan: Medical Necessity - Tobacco Use Smoking Status: Current every day smoker Tobacco Use: Cigarettes Assessment/Plan Assessment/recommendations: The patient's chest pain does not appear to be cardiac in origin at this time but rather most likely recurrence of his peptic ulcer disease and/or sliding hiatal hernia. Patient reports he had some black tarry stools however he is on iron therapy for his anemia. He has ruled out for myocardial infarction. I recommend the patient be treated with IV PPI therapy in order to completely turn off any acid production in his stomach which may be contributing to his chest pain symptoms. This may continue for a total of 24 hours. In addition I recommend he undergo a 2D echo with Doppler to document his LV function and pulmonary pressures as well as a treadmill echocardiogram to assess for ischemia. I would not recommend aspirin and Plavix for his distal aorta mural thrombus at this time as he has a history of peptic ulcer disease and GI upset which may be exacerbated by dual antiplatelet therapy. However, if the patient stress test is abnormal, he may need a trial of dual antiplatelet therapy prior to diagnostic coronary angiogram. If his stress test is grossly abnormal, the patient may require diagnostic coronary angiogram, probably with a long sheath or via radial approach to avoid irritation of his distal aorta mural thrombus. If his stress test is negative, I would not pursue any additional invasive evaluation at this time. Would also recommend GI consultation for repeat EGD, and possible barium swallow test to determine the severity of his hiatal hernia. Consideration may want to be made for EGD and/or gallbladder ultrasound prior to discharge. 2. Hyperlipidemia: Continue statin based therapy, his LDL is 70 and HDL is 38. 3. Thank you very much for the opportunity to participate in the cardiac care of your patient. Code Visit Inpatient E&M: 70135 Subs Hosp L2
--- NOTE | 2019-08-10 09:00 | STE_ITS ---
Reason For Study: CHEST PAIN Stress Results Protocol: Maik Protocol Maximum Predicted HR: 162 bpm Target HR: 138 bpm % Maximum Predicted HR: 87 % DurationHeart Rate Stage (mm:ss) (bpm) BP BASELINE 55 132/84 STAGE 1 3:00 100 142/82 STAGE 2 3:00 114 144/80 STAGE 3 2:00 141 / RECOVERY 76 130/80 Stress Duration: 8:00 mm:ss Maximum Stress HR: 141 bpm Baseline Echocardiogram Findings The estimated ejection fraction is 65 %. Stress Echo Wall motion Data Resting WM Intermediate WM Stress WM Resting Wall Motion Wall Motion Stress No regional wall motion No regional wall motion abnormalities noted. abnormalities noted. EKG Data The baseline ECG displays normal sinus rhythm. The patient exercised according to the regular Maik protocol for a total duration of 8:01. The maximum heart rate attained was 144 beats per minute. This was 88% of maximum predicted heart rate. The patient exercised into stage 3 of the Maik protocol. During stress, there were no ST or T wave changes noted to suggest ischemia. No clinical angina was noted. No arrhythmias noted. Interpretation Summary The estimated ejection fraction is 65 %. Normal, adequate, treadmill echocardiogram. Negative for ischemia by EKG and echocardiographic criteria. No anginal symptoms noted. No arrhythmias noted. Appropriate blood pressure response to exercise. Average exercise capacity for age. Final LVEF of 75%. Test terminated due to the attainment target heart rate and leg discomfort. Patient tolerated the procedure well. No complications. Ordering Physician: Luca Centeno Performed By: Claudette Arrington RDCS
[2019-08-10] MEDS: Acetylcysteine (Mucomyst Oral) 20% SOLN 1200 MG PO (12:42)
[2019-08-10] MEDS: amLODIPine 10 MG Tablet PO (12:43)
[2019-08-10] MEDS: Atenolol 50 MG Tablet PO (12:43)
--- NOTE | 2019-08-10 14:11 | DCINST_ITS ---
- Discharge Diagnoses Current Active Problems: Current Active and Chronic Problems (Last Updated 08/09/19 @ 06:00 by Deejay Pederson MD) Chronic kidney disease (CKD) (Chronic) GERD (gastroesophageal reflux disease) (Chronic) Peptic ulcer disease (Chronic) Hyperlipidemia (Chronic) Hypertension (Chronic) Chest pain (Acute) You will use the following diet at home:: Cardiac Your food should be the consistency of: Regular Discharge Activity: Return to Normal Activity Weight Bearing Status: Weight bearing as tolerated Call your doctor if you observe: Fever of 101 or Higher, Shortness of breath, Dizziness, Fainting spells, Chest pain, Increased palpitations (irregular heartbeat), Uncontrolled pain Instructions: Peptic Ulcer Additional Instructions: 1-take Protonix 40 mg by mouth twice a day for 2 weeks and then go down to once a day. 2-start taking baby aspirin 81 mg p.o. daily after 10 days from today, take it with food. Allergies/Adverse Reactions: Allergies Penicillins [PCN] Allergy (Verified 08/08/19 20:24) Rash Medications to take at Discharge ALPRAZolam [Xanax] 1 mg PO QHS 08/08/19 Amlodipine [Norvasc] 10 mg PO DAILY 08/08/19 Atenolol 50 mg PO DAILY 08/08/19 Atorvastatin Calcium [Lipitor] 10 mg PO QHS 08/08/19 Chlorthalidone 12.5 mg PO DINNER 08/08/19 Iron Carbonyl [Feosol] 65 mg PO DINNER 08/08/19 Losartan Potassium [Cozaar] 100 mg PO DAILY 08/08/19 Aspirin E.C. [Ecotrin] 81 mg PO DAILY@0800 #90 tab 08/10/19 Pantoprazole Sodium [Protonix] 40 mg PO BID #90 tab 08/10/19 Sucralfate [Carafate] 1 gm PO 1HR_ACHS #90 tab 08/10/19 The following prescriptions were given: Sucralfate [Carafate] 1 gm PO 1HR_ACHS #90 tab Transmission Status: Pending to [place], [place] Aspirin E.C. [Ecotrin] 81 mg PO DAILY@0800 #90 tab Transmission Status: Pending to [place], [place] Pantoprazole Sodium [Protonix] 40 mg PO BID #90 tab Transmission Status: Pending to [facility] [place] Primary Care Physician: Payton Moore MD [Primary Care Provider] - Please follow up with your Primary Care Physician in: 1-2 weeks. Test Results: Test results from this visit will be discussed in further detail at your follow- up appointment, if applicable. Please Follow Up With: Payton Moore MD
--- NOTE | 2019-08-10 14:14 | PCM.DC.SUM ---
Discharge Date and Diagnosis Date of Admission: 08/08/19 Date of Discharge: 08/10/19 - Primary Discharge Diagnosis Active and Suspected Problems (Last Updated 08/09/19 @ 06:00 by Deejay Pederson MD) #1 severe retrosternal/epigastric pain, attributed to peptic ulcer disease. ACS ruled out. #2 distal aortic minimal mural thrombus/aortic infrarenal abdominal plaque formation. - Secondary Discharge Diagnosis Chronic Problems (Last Updated 08/09/19 @ 06:00 by Deejay Pederson MD) Chronic kidney disease (CKD) (Chronic) GERD (gastroesophageal reflux disease) (Chronic) Peptic ulcer disease (Chronic) Hyperlipidemia (Chronic) Hypertension (Chronic) Hospital Course and Treatment Imaging Results: 08/10/19 09:00 Stress Test Echo w/o Contrast [ECHO] Routine Clinical Impression(s) from Imaging Studies Abdomen CTA 08/09/19 08:42 IMPRESSION: Atherosclerotic plaque formation of the abdominal aorta and both common iliac arteries without any aneurysm or significant stenosis. Electronically Signed: Suraj Yuen, at 10:14 EST , Service support , Chest CTA 08/09/19 08:42 IMPRESSION: No evidence of pulmonary embolism. Mild degree of dependent bibasilar atelectasis. Electronically Signed: Suraj Yuen, at 10:19 EST , Service support , Dr. Centeno, cardiology. Operations: None Procedures: 2-D Echocardiogram, Stress test Summary of Care Provided: Patient seen and examined on the day of discharge and appeared to be stable to be discharged home. Chest pain significantly improved after IV Protonix drip, Carafate and Mylanta. His vital signs are stable. The patient is a 59 year old M patient was admitted directly from outside facility for chest pain for evaluation. The pain was so severe that patient was crying and moaning when he had those attacks of the chest pain. He had multiple EKGs done that was unremarkable for acute ischemia. Troponin was negative x3. Patient had a history of peptic ulcer disease that he was diagnosed with several weeks ago according to the patient's based on endoscopy that was done at outside facility. Initially, there is a concern that he may have PE or dissection as his d-dimer was elevated. CTA chest done and showed no PE or dissection, no acute findings. CTA abdomen and pelvis also performed and revealed atherosclerotic plaque formation of the infrarenal abdominal aorta without evidence of aneurysmal dilatation and there was minimal mural thrombus seen along the posterior right side of the distal aorta. Consulted and recommended stress echocardiogram and 2D echocardiogram. Case discussed with cardiology about this minimal mural thrombus which seemed to be chronic and there was no indication for treatment. Patient was treated with IV fluids, IV Protonix drip as well as Carafate and Mylanta. His symptoms significantly improved after treatment. 2D echocardiogram revealed ejection fraction 65%, RVSP of 32 and no evidence of significant valvular heart disease. He had stress echocardiogram that was normal, adequate treadmill echocardiogram which was negative for ischemia by EKG and echocardiographic criteria. ACS ruled out. His chest pain and epigastric pain attributed to recent diagnosis of peptic ulcer disease that was diagnosed at outside facility. Patient discharged home in a stable medical condition, discharged on Protonix 40 mg p.o. twice daily, instructed to take Protonix twice a day for 2 weeks and then to go back to once a day, discharged on Carafate 1 g 4 times a day, instructed to take aspirin 81 mg p.o. daily with food after 10 days to give time to the peptic ulcer disease to heal, continued on his previous home medications without any changes, recommended follow-up with PCP in 1 to 2 weeks. - Physical Exam Vitals/I&O's: Vital Signs Temp Pulse Resp BP Pulse Ox 98.0 F 63 18 138/79 H 99 08/10/19 12:45 08/10/19 13:30 08/10/19 12:45 08/10/19 12:45 08/10/19 12:45 Oxygen Flow Rate (L/min) 2 Oxygen Delivery Method Room Air Weight: 123 lb 10.869 oz Body Mass Index (BMI) 20.5 Intake and Output for Last 24 Hours 08/08/19 08/09/19 08/10/19 23:59 23:59 23:59 Intake Total 2755.91 / 2755.91 1475.17 / 1475.17 Output Total 2350 / 2350 1400 / 1400 Balance 405.91 / 405.91 75.17 / 75.17 General: Alert, Oriented x3, Cooperative, No apparent distress HEENT: Atraumatic, PERRLA, EOMI, Normocephalic Oral: Moist Mucosa, No Gingival or Mucosal Lesions/ Ulcerations Neck: Supple, No JVD, Negative Carotid Bruits, Trachea Midline, Thyroid Normal Size and Texture Lungs: Clear to auscultation, Normal air movement, No rhonchi, No wheeze, No rales Cardiovascular: Regular rate, Regular Rhythm, Normal S1, Normal S2, PMI Normal Abdomen: Bowel Sounds Present, Soft, Non Tender, Non-Distended, No Hepato-splenomegaly Extremities: No clubbing, No cyanosis, No edema Skin: No rashes, No breakdown Lymphatic: No Cervical, Supraclavicular, or Inguinal Adenopathy Neurological: Cranial nerves II-XII grossly intact, Neuro grossly intact Psych/Mental Status: Normal Affect, Appropriate Laboratory Results 08/10/19 05:00: WBC 9.3, RBC 3.90 L, Hgb 9.7 L, Hct 32.0 L, MCV 82.1, MCH 24.9 L, MCHC 30.3 L, RDW Std Deviation 62.7 H, RDW Coeff of Darius 21.2 H, Plt Count 368, MPV 10.0, Immature Gran % (Auto) 0.400, Neut % (Auto) 69.6, Lymph % (Auto) 16.6 L, Mclean % (Auto) 8.5, Eos % (Auto) 4.3, Baso % (Auto) 0.6, Absolute Neuts (auto) 6.4, Absolute Lymphs (auto) 1.54, Nucleated RBC % 0, Differential Comment SCANNED, Hypochromasia 1+, Anisocytosis 2+ 08/10/19 05:00: Sodium 144, Potassium 4.0, Chloride 111 H, Carbon Dioxide 26.0, Anion Gap 7, BUN 19 H, Creatinine 1.35 H, Estim Creat Clear Calc 47.33, Est GFR (MDRD) Af Amer 70, Est GFR (MDRD) Non-Af 58 L, BUN/Creatinine Ratio 14.1, Glucose 96, Calcium 8.3 L Current Medications Acetaminophen (Tylenol) 650 mg PO Q6H PRN PRN PRN Reason: Pain Score 1-10/Temp > 100.7 F Last Admin: 08/09/19 01:10 Dose: 650 mg Documented by: Acetylcysteine (Mucomyst) 1,200 mg PO BID [facility] Last Admin: 08/10/19 12:42 Dose: 1,200 mg Documented by: Al Hydroxide/Mg Hydroxide (Mylanta Ii) 30 ml PO Q6H PRN PRN PRN Reason: Heartburn, epigastric pain Alprazolam (Xanax) 1 mg PO QHS [facility] Last Admin: 08/09/19 21:31 Dose: 1 mg Documented by: Amlodipine Besylate (Norvasc) 10 mg PO DAILY [facility] Last Admin: 08/10/19 12:43 Dose: 10 mg Documented by: Aspirin (Ecotrin) 81 mg PO DAILY@0800 [facility] Last Admin: 08/10/19 06:09 Dose: 81 mg Documented by: Atenolol (Tenormin (Beta Apple)) 50 mg PO DAILY [facility] Last Admin: 08/10/19 12:43 Dose: 50 mg Documented by: Atorvastatin Calcium (Lipitor) 80 mg PO QHS [facility] Last Admin: 08/09/19 21:31 Dose: 80 mg Documented by: Chlorthalidone (Hygroton) 12.5 mg PO DINNER [facility] Last Admin: 08/09/19 16:20 Dose: 12.5 mg Documented by: Glucagon () 1 mg IM .X1 PRN PRN Reason: Hypoglycemia Sodium Chloride () 1,000 mls @ 125 mls/hr IV .Q8H [facility] Last Infusion: 08/10/19 12:37 Dose: 125 mls/hr Documented by: Dextrose (Dextrose 10%-Water) 250 mls @ 999 mls/hr IV X1 PRN; Protocol PRN Reason: HYPOGLYCEMIA Pantoprazole Sodium 80 mg/ (Sodium Chloride) 100 mls @ 10 mls/hr CONT INF Q10H [facility] Last Infusion: 08/10/19 12:36 Dose: 10 mls/hr Documented by: Iron (Feosol) 45 mg PO DINNER [facility] Last Admin: 08/09/19 16:20 Dose: 45 mg Documented by: Losartan Potassium (Cozaar) 100 mg PO DAILY [facility] Last Admin: 08/10/19 06:09 Dose: 100 mg Documented by: Melatonin (Melatonin) 3 mg PO QHS PRN PRN PRN Reason: INSOMNIA Morphine Sulfate () 2 mg IV Q4H PRN PRN PRN Reason: chest pain Last Admin: 08/09/19 06:56 Dose: 2 mg Documented by: Nutritional Formula (Lactose Free) (Ensure Enlive) 120 ml PO 4X/DAY [facility] Last Admin: 08/10/19 07:29 Dose: Not Given Documented by: Sodium Chloride () 10 - 40 ml IV UD PRN PRN Reason: SALINE FLUSH Last Admin: 08/10/19 06:41 Dose: 10 ml Documented by: Sucralfate (Carafate) 1 gm PO 1HR_ACHS [facility] Last Admin: 08/10/19 12:43 Dose: 1 gm Documented by: Discharge Activity: Return to Normal Activity Weight Bearing Status: Weight bearing as tolerated Call your doctor if you observe: Fever of 101 or Higher, Shortness of breath, Dizziness, Fainting spells, Chest pain, Increased palpitations (irregular heartbeat), Uncontrolled pain Home Medications: Medications to take at Discharge ALPRAZolam [Xanax] 1 mg PO QHS 08/08/19 Amlodipine [Norvasc] 10 mg PO DAILY 08/08/19 Atenolol 50 mg PO DAILY 08/08/19 Atorvastatin Calcium [Lipitor] 10 mg PO QHS 08/08/19 Chlorthalidone 12.5 mg PO DINNER 08/08/19 Iron Carbonyl [Feosol] 65 mg PO DINNER 08/08/19 Losartan Potassium [Cozaar] 100 mg PO DAILY 08/08/19 Aspirin E.C. [Ecotrin] 81 mg PO DAILY@0800 #90 tab 08/10/19 Pantoprazole Sodium [Protonix] 40 mg PO BID #90 tab 08/10/19 Sucralfate [Carafate] 1 gm PO 1HR_ACHS #90 tab 08/10/19 Following Prescrptions Were Given to Patient: Sucralfate [Carafate] 1 gm PO 1HR_ACHS #90 tab Transmission Status: Received by [place], [place] Aspirin E.C. [Ecotrin] 81 mg PO DAILY@0800 #90 tab Transmission Status: Received by [place], [place] Pantoprazole Sodium [Protonix] 40 mg PO BID #90 tab Transmission Status: Received by [place], [place] Primary Care Physician: Payton Moore MD [Primary Care Provider] - Please follow up with your Primary Care Physician in: 1-2 weeks. Please Follow Up With: Payton Moore MD Patient Instructions: Peptic Ulcer Disposition: Home Minutes spent on discharge:: 28 Patient Condition:: Stable Medical Necessity - Tobacco Use Smoking Status: Current every day smoker Tobacco Use: Cigarettes Meaningful Use Info Meaningful Use Diagnoses (Choose all that apply): None applicable Code Visit OBSV E&M: 65607 Observation care discharge
[2019-08-10] MEDS: Chlorthalidone 50 MG Tablet 12.5 MG PO (15:05)
== END 2019-08-10 14:13 | disposition home or self-care (01) ==
PROVIDERS: Hospitalist; Internal Medicine Cardiovascular Disease; Admitting Provider Internal Medicine; Visit Provider Hospitalist
DX: K27.7 Chronic peptic ulcer, site unspecified, without hemorrhage or perforation (principal); I51.3 Intracardiac thrombosis, not elsewhere classified; K44.9 Diaphragmatic hernia without obstruction or gangrene; K21.9 Gastro-esophageal reflux disease without esophagitis; F17.210 Nicotine dependence, cigarettes, uncomplicated; R94.31 Abnormal electrocardiogram [ECG] [EKG]; E78.5 Hyperlipidemia, unspecified; D64.9 Anemia, unspecified; E87.6 Hypokalemia; G47.00 Insomnia, unspecified; I12.9 Hypertensive chronic kidney disease with stage 1 through stage 4 chronic kidney disease, or unspecified chronic kidney disease; N18.9 Chronic kidney disease, unspecified; Z79.899 Other long term (current) drug therapy
CPT/HCPCS: 36415; 71275; 74175; 80048; 80061; 83735; 84484; 85025; 85379; 85652; 93005; 93017; 93306; 93350; 96361; 96365; 96366; 96375; 96376; 97802; 99218; 99406; J7030; Q9967; A4216; G0378; G0379

== ENCOUNTER → 2020-08-09 12:36 | Outpatient (CLI) | payer SELFPAY, OTHER ==
--- NOTE | 2020-08-09 12:39 | CT_ITS ---
STUDY: CT SCAN LOWER EXTREMITY RIGHT REASON FOR EXAM: Male, 60 years old. RIGHT HIP PAIN, OSTEOARTHRITIS. [facility] PROTOCOL RADIATION DOSAGE (If Supplied By Facility): CTDIvol = ( 12.545 ) mGy, DLP = ( 740.18 ) mGycm. Individualized dose optimization techniques were used for this CT.? TECHNIQUE: Multiple axial tomographic images of the hip joints and knee joints were obtained. Coronal and sagittal reconstruction was obtained as well. COMPARISON: None. FINDINGS: Marked degree of joint space narrowing and osteoarthritis of the right hip joint with superior lateral migration of the hip joint. Multiple subchondral geodes are seen in the subchondral region of the acetabulum and right femoral head. There is deformity of the femoral head suggestive of a avascular necrosis. There is evidence of prior laminectomy and fusion in the lower lumbar spine with disc space narrowing and disc degeneration. Imaging of the knee joints demonstrates mild degree of the joint space narrowing involving the medial compartment of the knee joint. CT/Extremity Lower without Contra IMPRESSION: Marked degree of osteoarthritis of the right hip joint with the findings suggestive of avascular necrosis and deformity of the femoral head with subchondral geodes of the femoral head and acetabulum. Electronically Signed: Suraj Yuen, at 14:39 EST , Service support ,
== END ==
PROVIDERS: PCP Family Medicine; Referring Provider Specialist; Visit Provider Specialist
DX: M16.11 Unilateral primary osteoarthritis, right hip (principal)
CPT/HCPCS: 73700

== ENCOUNTER 2020-09-11 12:36 | Observation (INO) | payer SELFPAY, OTHER ==
--- NOTE | 2020-08-09 12:42 | EKG12_ITS ---
Test Reason : PRE OP Blood Pressure : / mmHG Vent. Rate : 091 BPM Atrial Rate : 091 BPM P-R Int : 158 ms QRS Dur : 086 ms QT Int : 388 ms P-R-T Axes : 073 067 065 degrees QTc Int : 477 ms Normal sinus rhythm Normal ECG Confirmed by SHARAD BARTHOLOMEW, MANUELA ([id number]), editorial writer LUCIAN LEMOS ([id number]) on 08/15/2020 8:17:41 AM Referred By: ROLF Confirmed By:MANUELA OROURKE MD
[2020-08-09 13:40] LABS: Absolute Lymphocyte Count 1.51 X10^3/uL (0.83-4.51); Absolute Neutrophil Count 4.2 X10^3/uL (2.0-7.7); Basophil# 0.11 X10^3/uL; Basophil% 1.6 % (0-1); Eosinophil# 0.23 X10^3/uL; Eosinophils% 3.4 % (0-5); Hematocrit 35.1 % (40-54); Hemoglobin 9.7 g/dL (13.0-16.5); Lymphocyte # 1.51 X10^3/ul (4.0); Lymphocyte % 22.3 % (19-41); Mean Corp Hgb Conc 27.6 g/dL (32-36); Mean Corpuscular Hgb 20.2 pg (27.0-32.0); Mean Platelet Vol. 8.7 fl (6.2-12.0); Monocyte# 0.68 X10^3/uL; NRBC Flagged by Analyzer 0.6 % (0-5); Neutrophil % 62.1 % (47-70); POSITIVE MORPHOLOGY YES; Platelet Count 451 K/mm3 (150-450); RBC Distribution Width CV 20.1 % (11.6-14.6); RBC Distribution Width SD 51.8 fl (35.1-43.9); Red Blood Count 4.81 M/mm3 (4.6-6.2); White Blood Count 6.8 K/mm3 (4.4-11.0)
[2020-08-09 13:41] LABS: Differential Indicated SCAN CRITERIA MET
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
[2020-08-09 14:02] LABS: Anisocytosis 2+; Differential Comment SCANNED; Hypochromasia 2+; Microcytosis 1+; Ovalocyte 1+
[2020-08-09 14:04] LABS: Anion Gap 5 (5-15); BUN 16 mg/dL (7-18); BUN/Creat Ratio 9.8 RATIO (10-20); Chloride 106 mmol/L (98-107); Creatinine, Serum 1.63 mg/dL (0.70-1.30); EST Glomerular Filtration Rate 46 mL/min (>60); Est Glom Filt Rate - Afr Amer 56 mL/min (>60); Glucose 103 mg/dL (74-106); Potassium 3.7 mmol/L (3.5-5.1); Sodium Level 141 mmol/L (136-145)
[2020-08-14 10:43] LABS: Magnesium 2.1 mg/dL (1.6-2.6)
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
[2020-09-11] VITALS (12 sets, daily range): BP systolic 98–145; BP diastolic 67–100; PULSE 61–86; RESP 14–18; TEMP 36.2–36.7; O2SAT 99–100; BMI 23.7; BMI 24.3
[2020-09-11] MEDS: Acetaminophen 500 MG Tablet 1000 MG PO ×3 (07:00→21:41)
[2020-09-11] MEDS: Lactated Ringers 1,000 ML 75 ML IV (07:00)
[2020-09-11] MEDS: Lactated Ringers 1,000 ML 999 ML IV ×2 (07:00→14:00)
[2020-09-11] MEDS: Scopolamine 1mg/72hr Patch 1 PATCH TD (07:45)
[2020-09-11] MEDS: Vancomycin IV 1,000 MG/200 ML BAG 200 MG IV ×2 (11:14→23:21)
--- NOTE | 2020-09-11 11:15 | FEM_PTH ---
PATIENT: TEOFILO HALL LOC: MS3 U#:[id number] AGE/SX: 60/M ROOM: OR319 RE09/11/[address]: Dr. Buzz Garcia MD : 1960 BED: 1 DIS: 09/12/2020 SPEC #: [id number] RECD: 09/11/20 11:15 STATUS: LILIYA REDanna #: [id number] ALFREDO: 09/11/20 11:[address]: Ari Rocha DEPT: SURGICAL PATHOLOGY RECD BY: Alondra Thomson ENTERED: 09/12/20 06:49 SP TYPE: FEM HEAD OTHR DR: MD Dr. Salas Briggs MD Tissues: Femoral region, NOS Procedures: Decalcification bone/plaque Surgery Specimen Level V HEADER OPERATION: ERAS, total hip anterior robotic arm assist resection PRE-OP DIAGNOSIS: Severe right hip osteoarthritis TISSUE SUBMITTED: Femoral head right hip MICROSCOPIC DIAGNOSIS Right hip, total hip resection: Severe degenerative joint disease. Trilineage hematopoiesis of bone marrow with no pathologic change. AM:galindo 09/18/2020 MICROSCOPIC DESCRIPTION Slides are reviewed. GROSS DESCRIPTION Received is one container labeled with the patient's name and designated bone and tissue of right hip. The specimen consists of a distorted femoral head measuring 6.5 x 5.5 x 5.5 cm. The articular surface displays prominent osteophyte formation, eburnation and bone erosion. Also present in the specimen container are multiple irregular fragments of bone reamings and clotted blood measuring in aggregate 11?x 10 x 2 cm. Digital Advisor sections are submitted in two cassettes as follows: 1 - bone reamings, 2??femoral head. Both are submitted after decalcification. / AM:galindo 09/12/20 TC:5 CPT: 51174, 64930
[2020-09-11] MEDS: dexAMETHasone 10 MG/ML Vial IV (11:17)
[2020-09-11 11:46] LABS: Bedside Glucose 82 mg/dL (70-110)
--- NOTE | 2020-09-11 12:35 | RAD_ITS ---
STUDY: X-RAY - PELVIS AND RIGHT HIP REASON FOR EXAM: Fluoroscopy for right hip arthroplasty. TECHNIQUE: 4 intraoperative images of the pelvis and hip. COMPARISON: CT images 08/09/2020. FINDINGS: There is a right hip arthroplasty without evidence of complication. Electronically Signed: Sukhjinder Fine MD at 13:47 EST Tel , Service support , RAD/Hip 1 view with Pelvis
--- NOTE | 2020-09-11 12:59 | OP.PCM_ITS ---
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 Surgery/Procedure Performed:: Right direct anterior minimally invasive robotic assisted total hip replacement Description of Surgical Findings:: Stable hip with equal leg lengths transformer assembly supervisor: Robert Rojo Type of Anesthesia:: Spinal Anesthesiologist: Robert Rojo Special Medications: Cleocin and vancomycin, 1 g TXA at incision, 1 g TXA closure, 10 mg Decadron, joint cocktail (5 mg Duramorph, 30 mL of 0.5% Ropivicaine, 1000 units of epinephrine, 30 mg of Toradol) Specimen's removed: Femoral head was sent to pathology Estimated Blood Loss (mL): 350 Fluids Replaced: 1800 mL crystalloid Description of Procedure: Components used: 1. Accolade 2 Kalyn femoral stem size 5 127? 2. [place] trident 2 acetabular shell size 64 mm 3. [place] X3 MDM polyethylene H 4. Kalyn Biolox delta 28 mm, 4 mm femoral head 5. MDM H metal liner, Kalyn Brief history operative indications: 60 yo m who failed conservative measures for their hip osteoarthritis. X-rays were consistent with osteoarthritis including joint space narrowing, osteophyte formation and subchondral cysts. Total hip replacement was discussed with the patient with risks and benefits including but not limited to blood loss, DVTs, PEs, neurovascular damage, dislocation, general risks of anesthesia including loss of life. Patient demonstrated an understanding medical clearance is obtained the patient was consented for surgery. Procedure: On the date of procedure the patient's r hip was marked in the preoperative area. Patient was then taken back to the operating room where anesthesia assumed control of the C-spine and airway and administered anesthetic. Patient was transferred to the operating table and placed in the supine position. The hips were placed at the break of the bed and a sacral bump was placed. A checkpoint was placed on the tibial tubercle. The r lower extremity was then prepped out in a sterile fashion using chlorhexidine while the surgeon scrubbed. The PA was vital in the positioning of the patient. Upon reentering the room the r lower extremity was draped in the standard orthopedic fashion and the incision was marked. A timeout was called and everyone agreed upon the side, the site, the procedure be performed, antibody given, and patient's identity. 3 pins were placed in the right iliac crest with a small skin incision and blunt dissection down to the bone. After the skins were placed in a ray was placed for targeting. At this time left hip operative incision was made through skin, subcutaneous tissue, and fat down to fascia. The fascia was then incised and the TFL was retracted laterally. A retractor was placed on the lateral border of the femoral neck. Attention was directed to the inferior portion of the approach and all crossing vessels were identified and appropriately coagulated. A retractor was then placed on the medial portion of the femoral neck. The anterior capsule was then cleared of all soft tissue and then H shaped capsulotomy was made. The retractors were then placed inside the capsule. The checkpoint was placed. The checkpoints were registered. The femoral neck was identified and a cleanup cut was made. At this time a power corkscrew was used to remove the femoral head. Attention was then turned toward the acetabulum where the soft tissues were appropriately retracted and debrided. The acetabulum was registered. The robot was brought into the field sterilely and the acetabulum was reamed to 64 mm. A 64 mm cup was then selected and impacted into place. Acetabular liner was impacted into place and locking mechanism was verified. The position of the acetabular cup was then verified under live fluoroscopy. Attention was then turned to the femur. Soft tissue releases on the medial and lateral femoral neck were appropriately done, the leg was externally rotated and lateralized. A Ramos retractor was placed medially and proximally to the greater trochanter this allowed appropriate visualization and exposure of the femoral canal. Rongeour was then used to remove excess lateral bone. A canal finder and entry broach were used to open the proximal canal. Once we verified we were down the femoral canal we subsequently broached up to a size 5 femur. The appropriate neck was placed in the previously selected head was trialed with a 4 mm neck. Traction was pulled and the hip was reduced with internal rotation. Once it was appropriately reduced and stability was checked. There was minimal shuck, equal leg lengths and appropriate stability with hyperextension and external rotation as well as with 90? flexion and internal rotation. Fluoroscopy was then also used to verify the position of the components and leg lengths using the contralateral side for comparison. The trial components were then dislocated the proximal femur was again exposed and the components were removed from the wound. The final components were verified and opened. The wound was copiously irrigated out with normal saline. The acetabulum was checked for any residual debris. The final components were placed and impacted. Traction and internal rotation were again used to reduce the hip. After adequate reduction the hip remained stable with appropriate leg lengths. The final components were once again checked with live fluoroscopy and were found to be satisfactory. The wound was then copiously irrigated with normal saline once more, and hemostasis was obtained. Closure was then done using #1 Vicryl runner to close the fascia. A 2-0 vicryl interuppted sutures were used to close the subcutaneous skin. A 3-0 Monocryl and Steri-Strips were used for final skin closure. the pins were removed and pin sites closed. A sterile dressing was placed. Patient was awakened by anesthesia and transferred to the [facility]. Patient was then transferred to the PACU for recovery. Postoperative plan: Patient will get 24 hours postop antibiotics. Patient will get in-house physical therapy and will be weight-bear as tolerated. Patient will follow up in office in 2 weeks for a wound check and x-rays. During the course of the procedure the physician carton forming machine helper (PE) played a vital role. Their intimate knowledge of my steps in the procedure aided in safe and expedient completion of the procedure. The PE played a vital rolls in positioning particularly in obtaining the appropriate positioning of the sacral bump. The PE was also vital in the retraction of soft tissues during the exposure and especially the femoral work as this is a vital part of the procedure to prevent complications and fractures. The PE was also vital and protecting soft tissues during times of bony cuts and reaming. He also played a vital role in closure with my direct supervision. The PE was also important during reduction and dislocation of the joint and trials intraoperatively. - Complications No intraoperative complications - Admit VTE Documentation VTE Present on Admission: No VTE Mechan Device Prophylaxis: SCD's, Thigh High ORLY Hose VTE Pharm Prophylaxis ordered?: Yes
--- NOTE | 2020-09-11 14:00 | RAD_ITS ---
STUDY: X-RAY - PELVIS AND RIGHT HIP REASON FOR EXAM: Postop right hip arthroplasty. TECHNIQUE: 2 views of the pelvis and hip. COMPARISON: Intraoperative fluoroscopic images. FINDINGS: There is postoperative gas in the soft tissues. Normal bilateral superior and inferior pubic rami. Normal pubic symphysis. Normal bilateral ischial tuberosities. There is a right hip arthroplasty without evidence of complication. RAD/Hip Min 2 Views (Portable) IMPRESSION: Uncomplicated right hip arthroplasty. Electronically Signed: Sukhjinder Fine MD at 14:53 EST Tel , Service support ,
--- NOTE | 2020-09-11 14:18 | EKG12_ITS ---
Test Reason : POST OP Blood Pressure : / mmHG Vent. Rate : 083 BPM Atrial Rate : 083 BPM P-R Int : 164 ms QRS Dur : 092 ms QT Int : 416 ms P-R-T Axes : 075 067 047 degrees QTc Int : 488 ms Normal sinus rhythm Prolonged QT Abnormal ECG When compared with ECG of 09-AUG-2020 12:56, No significant change was found Confirmed by SONY BARTHOLOMEW, SHAGGY ([id number]), digital editor LUCIAN LEMOS ([id number]) on 09/16/2020 11:20:57 AM Referred By: Ari Rocha Confirmed By:JAZMÍN CARDOZA MD
[2020-09-11] MEDS: Lactated Ringers 1,000 ML 125 ML IV (16:05)
--- NOTE | 2020-09-11 16:58 | CON.PCM_ITS ---
Problem List (1) Avascular necrosis of bone of right hip Status: Chronic (2) Chronic anemia Status: Chronic (3) Former tobacco use Status: Chronic (4) Chronic kidney disease (CKD) Status: Chronic Qualifiers: Chronic kidney disease stage: stage 3 (moderate) Chronic kidney disease stage 3 subtype: unspecified whether 3a or 3b Qualified Code(s): N18.30 - Chronic kidney disease, stage 3 unspecified (5) GERD (gastroesophageal reflux disease) Status: Chronic Qualifiers: Esophagitis presence: esophagitis presence not specified Qualified Code(s): K21.9 - Gastro-esophageal reflux disease without esophagitis (6) Peptic ulcer disease Status: Chronic (7) Hyperlipidemia Status: Chronic Qualifiers: Hyperlipidemia type: unspecified Qualified Code(s): E78.5 - Hyperlipidemia, unspecified (8) Hypertension Status: Chronic Qualifiers: Hypertension type: essential hypertension Qualified Code(s): I10 - Essential (primary) hypertension Reason for Consult Date of Consultation: 09/11/20 Reason for Consultation: Medical consultation History of Present Illness: The patient is a 60 y/o M w/ PMHx: GERD, Hx Gastric Ulcer, HTN, HLD, Anxiety, Chronic pain syndrome, RLS, Former Tobacco use, Severe OA, CKD stage III who presents to the [facility] on 09/11/19 for planned right direct anterior minimally i nvasive robotic assisted total hip replacement with history of right hip avascular necrosis with secondary severe osteoarthritis and acetabular erosion per Dr. Rocha secondary to failed outpatient conservative interventions and methods. Following OR patient notes pain controlled, no perioperative events occurred. Medical consultation requested per orthopedic surgery. Past Medical History Past Medical History (Chronic Problems): Chronic Problems (Last Updated 08/09/19 @ 06:[address] Deejay Pederson MD) Avascular necrosis of bone of right hip (Chronic) Chronic anemia (Chronic) Former tobacco use (Chronic) Chronic kidney disease (CKD) (Chronic) GERD (gastroesophageal reflux disease) (Chronic) Peptic ulcer disease (Chronic) Hyperlipidemia (Chronic) Hypertension (Chronic) Medical History: Medical History (Last Updated 08/09/19 @ 06:[address] Deejay Pederson MD) GERD (gastroesophageal reflux disease) K21.9 HTN (hypertension) I10 Allergies Cephalosporins Allergy (Verified 09/11/20 10:39) Shortness of breath Penicillins [PCN] Allergy (Verified 09/11/20 10:39) Rash naproxen Adverse Reaction (Verified 09/11/20 10:39) syncope Home Medications: Ambulatory Orders Medication Instructions Recorded ALPRAZolam [Xanax] 1 mg PO QHS 08/08/19 Atenolol 50 mg PO DAILY 08/08/19 Acetaminophen [Tylenol Extra 1,000 mg PO Q8H PRN 08/14/20 Strength] Omeprazole Magnesium [Prilosec Otc] 20 mg PO QHS 08/14/20 Sucralfate [Carafate] 1 gm PO TID 08/14/20 Amlodipine [Norvasc] 5 mg PO DAILY 09/11/20 Ferrous Sulfate 325 mg PO DAILY 09/11/20 Folic Acid 1 mg PO DAILY 09/11/20 Surgical History: appendectomy, cholecystectomy, - - Back surgery with lumbar fusion, cholecystectomy, bilateral inguinal hernia repair, appendectomy. Psychiatric History: Anxiety Lives: Spouse/ Significant Other Smoking Status: Former smoker - Patient quit cigarette tobacco usage 02/2020 with prior to this 1/2 pack/day cigarette tobacco usage since he been a teenager. Tobacco Use: Non-smoker Alcohol: None Drugs: None - *Family History Maternal History Items: Hypertension Paternal History Items: Heart Disease Review of Systems Constitutional: Reports: Malaise, Weakness, Fatigue. Denies: Anorexia, Chills, Fever, Weight Change HEENT: Denies: Head Aches, Sinus Congestion, Sinus Drainage Cardiovascular: Denies: Chest Pain, Palpitations Respiratory: Denies: Cough, Shortness of breath at rest, Sputum production Gastrointestinal: Denies: Abdominal Pain, Nausea, Vomiting Genitourinary: Denies: Dysuria Musculoskeletal: Reports: Joint Pain, Joint stiffness, Joint swelling, Joint Tenderness, Leg Pain Skin: Denies: Rash, Wounds Neurological: Denies: Numbness, Tingling, Focal weakness Psychiatric: Reports: Anxiety. Denies: Depression, Homicidal Ideations, Suicidal Ideations Hematologic/ Lymphatic: Reports: Anemia. Denies: Easy Bruising, Easy Bleeding Subjective: Laying in the medical surgical bed, no acute distress, notes pain currently controlled. Objective: Physical Examination: General: awake, alert, oriented x 3 and cooperative, seated upright in medical surgical bed, no acute distress, recent right hip replacement. Skin: normal color, turgor, no icterus, cyanosis, right hip dressing in place, no drainage. HEENT: AT/NC, EOMI, PERRLA, mildly dry MM, no carotid bruits or JVD noted. Lungs: Diminished breath sounds, greater bases, moderate effort, no rales, ronchi or wheezing. Heart: Regular rate and rhythm; no gallop, rub audible. Abdomen: soft, NTTP, ND, normal BS, no HSM. Extremities: no cyanosis or clubbing, mild bilateral ankle swelling, peripheral pulses intact, recent right total hip replacement with dressing in place, no drainage. Neurological: patient awake, alert, oriented x 3; cognitive function intact; pupils equally reactive to light and accomodation; cranial nerves II-XII grossly normal, moving all 4 extremities except expected limitation right lower extremity given right hip replacement, strength accordingly moderately to severely global decreased. Psychiatric: affect appears fatigued otherwise normal, no acute evidence of depressive or anxiety feelings. - Physical Exam Vitals/I&O's: Vital Signs Temp Pulse Resp BP Pulse Ox 97.5 F L 61 14 108/78 100 09/11/20 15:45 09/11/20 15:45 09/11/20 15:45 09/11/20 15:45 09/11/20 15:45 Oxygen Flow Rate (L/min) 6 Oxygen Delivery Method Venturi Mask Weight: 170 lb 3.15 oz Body Mass Index (BMI) 24.3 Intake and Output for Last 24 Hours 09/09/20 09/10/20 09/11/20 23:59 23:59 23:59 Intake Total 2740.5 / 2740.5 Balance 2740.5 / 2740.5 Microbiology Past 72 Hours 09/10/20 10:00 Interface Orders SARS-CoV-2 Antigen (Rapid) - Final Laboratory Results 09/11/20 10:23: POC Glucose 82 Current Medications Acetaminophen (Acetaminophen 500 Mg Tablet) 1,000 mg PO Q8 [facility] Aspirin (Aspirin 81 Mg Tab.Chew) 81 mg PO BIDCM [facility] Enteral Nutritional Formula (Ensure Surgery 237 Ml Liquid) 237 ml PO TIDCM [facility] Famotidine (Famotidine 20 Mg Tablet) 20 mg PO DAILY [facility] Lactated Ringer's () 1,000 mls @ 75 mls/hr IV .[id number] SONA Stop: 09/11/20 20:19 Last Infusion: 09/11/20 14:00 Dose: Infused Documented by: Lactated Ringer's () 1,000 mls @ 125 mls/hr IV .Q8H [facility] Last Admin: 09/11/20 16:05 Dose: 125 mls/hr Documented by: Clindamycin Phosphate 600 mg/ (Dextrose) 54 mls @ 100 mls/hr IV Q6H [facility] Stop: 09/12/20 05:33 Vancomycin HCl (Vancomycin) 1,000 mg in 200 mls @ 200 mls/hr IV X1 ONE Stop: 09/11/20 23:59 Insulin Human Lispro (Insulin Lispro 100 Unit/Ml Insuln.Pen) 1 - 6 unit SC Q4H PRN PRN; Protocol PRN Reason: BG>/= 180, SEE PROTOCOL Stop: 09/11/20 18:00 Ketorolac Tromethamine (Ketorolac 15 Mg/Ml Vial) 15 mg IV Q6H PRN PRN PRN Reason: Pain Score 1-5 Stop: 09/13/20 07:42 Meloxicam (Meloxicam 7.5 Mg Tablet) 7.5 mg PO BID [facility] Morphine Sulfate (Morphine 2 Mg/Ml Syringe) 2 - 4 mg IV Q2H PRN PRN PRN Reason: Pain Score 4-10 Morphine Sulfate (Morphine 4 Mg/Ml Syringe) 2 - 4 mg IV Q2H PRN PRN PRN Reason: Pain Score 4-10 Ondansetron HCl (Ondansetron 4 Mg/2 Ml Vial) 4 mg IV Q8H PRN PRN PRN Reason: NAUSEA Oxycodone HCl (Oxycodone 5 Mg Tablet) 5 - 10 mg PO Q4H PRN PRN PRN Reason: Pain Score 4-10 Promethazine HCl (Promethazine 25 Mg/Ml Syringe) 12.5 mg IM Q6H PRN PRN; Protocol PRN Reason: NAUSEA/VOMITING Senna/Docusate Sodium (Senna/Docusate Sodium 1 Tablet) 2 tablet PO BID [facility] Sodium Chloride (0.9% Nacl Peripheral Flush Adult/Peds) 5 - 15 ml IV UD PRN PRN Reason: SALINE FLUSH Assessment/Plan All Active Problems (Last Updated 08/09/19 @ 06:[address] Deejay Pederson MD) Chest pain (Acute) The patient is a 60 y/o M w/ PMHx: GERD, Hx Gastric Ulcer, HTN, HLD, Anxiety, Chronic pain syndrome, RLS, Former Tobacco use, Severe OA, CKD stage III who presents to the [facility] on 09/11/19 for planned right direct anterior minimally invasive robotic assisted total hip replacement with history of right hip avascular necrosis. 1. Severe Osteoarthritis, right hip: Failed conservative therapies and treatments, admitted per Dr. Rocha for planned minimally invasive anterior robotic assisted total hip replacement of the right hip secondary to history of avascular necrosis complicated by severe osteoarthritis and acetabular erosion, post-operative pain management, bowel regimen, DVT Prophylaxis, PT/OT/CM per Orthopedic surgery discretion. 2. Chronic Kidney Disease Stage III: Most recent BUN/creatinine 08/09/2020 16/1.63 with similar baseline renal function, and BMP ordered. 3. Microcytic anemia, chronic: Most recent hemoglobin 08/09/20 9.7 with MCV 73, repeat hemoglobin noted in the AM, possibly related with history of gastric ulcer, will obtain iron panel, ferritin, stool guaiac especially given likely post surgery DVT prophylaxis. We will continue iron supplementation. 4. Anxiety: We will continue patient home Xanax regimen. 5. Hypertension: Continue home regimen including Norvasc, atenolol, PRN hydralazine. 6. GERD with history of gastric ulcer: We will continue patient home PPI and sucralfate regimen. 7. Former tobacco use: Encourage continued tobacco cessation. 8. Restless leg syndrome: If patient with significant issues given reported history may consider adding nightly Mirapex. 9. DVT prophylaxis: SCDs, defer chemoprophylaxis decision to orthopedic surgery monitoring as noted above. Inpatient E&M: 65769 Init Hosp L3
[2020-09-11] MEDS: Aspirin 81 MG TAB.CHEW PO (18:34)
[2020-09-11] MEDS: Ensure Surgery 237 ML LIQUID PO (18:37)
[2020-09-11] MEDS: Senna/Docusate Sodium 1 Tablet 2 TABLET PO (21:41)
[2020-09-11] MEDS: oxyCODONE 5 MG Tablet PO (22:32)
[2020-09-12 02:08] VITALS: BP 112/75; PULSE 63; RESP 18; TEMP 36.7; O2SAT 96
[2020-09-12] MEDS: Ketorolac 15 MG/ML Vial IV (02:13)
[2020-09-12] MEDS: Lactated Ringers 1,000 ML 125 ML IV (02:13)
[2020-09-12] MEDS: 0.9% NaCl Peripheral Flush Adult/Peds IV ×2 (02:13→07:35)
[2020-09-12] MEDS: Acetaminophen 500 MG Tablet 1000 MG PO ×2 (05:11→13:32)
[2020-09-12 07:28] VITALS: BP 121/80; PULSE 61; RESP 16; TEMP 36.6; O2SAT 97
[2020-09-12] MEDS: Senna/Docusate Sodium 1 Tablet 2 TABLET PO (07:34)
[2020-09-12] MEDS: Aspirin 81 MG TAB.CHEW PO (07:34)
[2020-09-12] MEDS: oxyCODONE 5 MG Tablet PO ×2 (07:35→13:32)
[2020-09-12] MEDS: Famotidine 20 MG Tablet PO (07:35)
[2020-09-12 07:36] LABS: Hematocrit 35.1 % (40-54); Hemoglobin 10.8 g/dL (13.0-16.5); Mean Corp Hgb Conc 30.8 g/dL (32-36); Mean Corpuscular Hgb 25.5 pg (27.0-32.0); Mean Platelet Vol. 9.8 fl (6.2-12.0); POSITIVE MORPHOLOGY YES; Platelet Count 282 K/mm3 (150-450); Red Blood Count 4.23 M/mm3 (4.6-6.2); White Blood Count 11.6 K/mm3 (4.4-11.0)
[2020-09-12 08:00] LABS: Scan Indicated on CBC? Y/N YES- FLAGS NOTED
[2020-09-12 08:14] LABS: Anion Gap 7 (5-15); BUN 23 mg/dL (7-18); BUN/Creat Ratio 13.9 RATIO (10-20); Calcium,Total 8.3 mg/dL (8.5-10.1); Chloride 99 mmol/L (98-107); Creatinine, Serum 1.66 mg/dL (0.70-1.30); EST Glomerular Filtration Rate 45 mL/min (>60); Est Glom Filt Rate - Afr Amer 55 mL/min (>60); Estimated Creatinine Clearance 49.47 ml/min; Ferritin 43 ng/mL (26-388); Glucose 107 mg/dL (74-106); Iron 41 ug/dL (65-175); Iron Binding Capacity,Total 356 ug/dL (250-450); PERCENT IRON SATURATION 11.5 % (15.0-55.0); Potassium 4.2 mmol/L (3.5-5.1); Sodium Level 132 mmol/L (136-145)
--- NOTE | 2020-09-12 08:21 | PN_ITS ---
Reason for Visit: Status post right total hip replacement Subjective: Patient is a 60-year old male who underwent right total hip replacement on account of avascular necrosis on 09/11/[address] Rocha hospitalist service was consulted to assist with management of patient medical comorbidities Objective: GENERAL: cooperative HEENT: Atraumatic; EYES; Anicteric, Normal Conjunctiva NECK; supple, normal thyroid, RESPIRATORY: Diminished to auscultation CARDIOVASCULAR: Regular S1 S2, GI: soft, normoactive bowel sounds, : No Renal angle tenderness; EXTREMITIES: No edema, no clubbing, NEURO: Awake; no lateralizing signs. SKIN: No Rash PSYCH; Flat affect Vitals/I&O's: Vital Signs Temp Pulse Resp BP Pulse Ox 97.8 F 61 16 121/80 H 97 09/12/20 07:28 09/12/20 07:28 09/12/20 07:28 09/12/20 07:28 09/12/20 07:28 Oxygen Flow Rate (L/min) 2 Oxygen Delivery Method Room Air Weight: 77.2 kg Body Mass Index (BMI) 24.3 Intake and Output for Last 24 Hours 09/10/20 09/11/20 09/12/20 23:59 23:59 23:59 Intake Total 5048.50 / 5498.50 1726.91 / 1726.91 Output Total 400 / 400 Balance 5048.50 / 5298.50 1326.91 / 1326.91 Microbiology Past 72 Hours 09/10/20 10:00 Interface Orders SARS-CoV-2 Antigen (Rapid) - Final Laboratory Results 09/11/20 10:23: POC Glucose 82 09/12/20 06:55: WBC 11.6 H, RBC 4.23 L, Hgb 10.8 L, Hct 35.1 L, MCV 83.0, MCH 25.5 L, MCHC 30.8 L, RDW Std Deviation TNP, RDW Coeff of Darius TNP, Plt Count 282, MPV 9.8 09/12/20 06:55: Sodium 132 L, Potassium 4.2, Chloride 99, Carbon Dioxide 26.0, Anion Gap 7, BUN 23 H, Creatinine 1.66 H, Estim Creat Clear Calc 49.47, Est GFR (MDRD) Af Amer 55 L, Est GFR (MDRD) Non-Af 45 L, BUN/Creatinine Ratio 13.9, Glucose 107 H, Calcium 8.3 L, Iron 41 L, TIBC 356, Iron Saturation 11.5 L, Ferritin 43 Current Medications Acetaminophen (Acetaminophen 500 Mg Tablet) 1,000 mg PO Q8 [facility] Last Admin: 09/12/20 05:11 Dose: 1,000 mg Documented by: Albuterol Sulfate (Albuterol 2.5 Mg/3 Ml Vial.Neb.) 2.5 mg INHALATION Q2H PRN PRN PRN Reason: Dyspnea, wheezing Aspirin (Aspirin 81 Mg Tab.Chew) 81 mg PO BIDCM [facility] Last Admin: 09/12/20 07:34 Dose: 81 mg Documented by: Enteral Nutritional Formula (Ensure Surgery 237 Ml Liquid) 237 ml PO TIDCM [facility] Last Admin: 09/11/20 18:37 Dose: 237 ml Documented by: Famotidine (Famotidine 20 Mg Tablet) 20 mg PO DAILY [facility] Last Admin: 09/12/20 07:35 Dose: 20 mg Documented by: Hydralazine HCl (Hydralazine 20 Mg/Ml Vial) 10 mg IV Q4H PRN PRN PRN Reason: SBP > 160 Sodium Chloride () 250 mls @ 15 mls/hr IV .[id number] PRN PRN Reason: Saline Flush Sodium Chloride () 250 mls @ 15 mls/hr IV .[id number] PRN PRN Reason: Additional IVPB Infusion Ketorolac Tromethamine (Ketorolac 15 Mg/Ml Vial) 15 mg IV Q6H PRN PRN PRN Reason: Pain Score 1-5 Stop: 09/13/20 07:42 Last Admin: 09/12/20 02:13 Dose: 15 mg Documented by: Meloxicam (Meloxicam 7.5 Mg Tablet) 7.5 mg PO BID [facility] Morphine Sulfate (Morphine 2 Mg/Ml Syringe) 2 - 4 mg IV Q2H PRN PRN PRN Reason: Pain Score 4-10 Morphine Sulfate (Morphine 4 Mg/Ml Syringe) 2 - 4 mg IV Q2H PRN PRN PRN Reason: Pain Score 4-10 Ondansetron HCl (Ondansetron 4 Mg/2 Ml Vial) 4 mg IV Q8H PRN PRN PRN Reason: NAUSEA Oxycodone HCl (Oxycodone 5 Mg Tablet) 5 - 10 mg PO Q4H PRN PRN PRN Reason: Pain Score 4-10 Last Admin: 09/12/20 07:35 Dose: 10 mg Documented by: Promethazine HCl (Promethazine 25 Mg/Ml Syringe) 12.5 mg IM Q6H PRN PRN; Protocol PRN Reason: NAUSEA/VOMITING Senna/Docusate Sodium (Senna/Docusate Sodium 1 Tablet) 2 tablet PO BID [facility] Last Admin: 09/12/20 07:34 Dose: 2 tablet Documented by: Sodium Chloride (0.9% Nacl Peripheral Flush Adult/Peds) 5 - 15 ml IV UD PRN PRN Reason: SALINE FLUSH Last Admin: 09/12/20 07:35 Dose: 10 ml Documented by: Sodium Chloride (0.9% Saline Lock 10 Ml Syringe) 10 - 40 ml IV UD PRN PRN Reason: SALINE FLUSH STROKE Vital Signs/Narrative: Vital Signs Temp Pulse Resp BP Pulse Ox 09/12/20 07:28 97.8 F 61 16 121/80 H 97 Medical Necessity - Tobacco Use Smoking Status: Former smoker - Patient quit cigarette tobacco usage 02/2020 with prior to this 1/2 pack/day cigarette tobacco usage since he been a teenager. Tobacco Use: Non-smoker Assessment/Plan All Active Problems (Last Updated 08/09/19 @ 06:[address] Deejay Pederson MD) Chest pain (Acute) Patient is a 60-year old male who underwent right total hip replacement on account of avascular necrosis on 09/11/[address] Rocha hospitalist service was consulted to assist with management of patient medical comorbidities 1. Status post right total hip replacement -on account of avascular necrosis on 09/11/[address] Rocha patient postoperative orders regarding PT OT, DVT prophylaxis and pain management addressed by primary service 2. Chronic kidney disease stage III ?Kidney function at baseline 3. Anemia - Secondary to chronic disorder monitoring H&H and transfuse if patient becomes symptomatic or hemoglobin falls below 7 4. Hypertension - Blood pressure controlled, home medications continued with dose adjustment as needed 5. Anxiety disorder ?Patient is on Xanax as needed 6. History of gastric ulcer ?Patient is on PPI and sacral fate did continue with home regimen 7. DVT prophylaxis ?Defer to primary service Inpatient E&M: 06450 Subs Hosp L2
--- NOTE | 2020-09-12 08:48 | PCM.PN.ORT ---
Subjective: The patient was sitting in bedside chair upon examination. Patient denies any chest pain, shortness of breath, dizziness, lightheadedness, nausea or vomiting, or calf pain. Pain is controlled on medications. No adverse overnight events. Patient overall is doing well today. He did have some nausea yesterday but this has resolved. Patient does wish to go home today as long as he is medically stable. Objective: Vital signs stable and afebrile. Patient is able to plantarflex and dorsiflex actively. Sensation is intact to light touch to saphenous, sural, superficial and deep peroneal, and tibial distribution. Dressing is clean dry and intact. Negative Homans bilaterally, negative signs and symptoms of DVT. - Physical Exam Vitals/I&O's: Vital Signs Temp Pulse Resp BP Pulse Ox 97.8 F 61 16 121/80 H 97 09/12/20 07:28 09/12/20 07:28 09/12/20 07:28 09/12/20 07:28 09/12/20 07:28 Oxygen Flow Rate (L/min) 2 Oxygen Delivery Method Room Air Weight: 77.2 kg Body Mass Index (BMI) 24.3 Intake and Output for Last 24 Hours 09/10/20 09/11/20 09/12/20 23:59 23:59 23:59 Intake Total 5048.50 / 5498.50 1726.91 / 1726.91 Output Total 400 / 400 Balance 5048.50 / 5298.50 1326.91 / 1326.91 General: Alert, Oriented x3, Cooperative, No apparent distress Microbiology Past 72 Hours 09/10/20 10:00 Interface Orders SARS-CoV-2 Antigen (Rapid) - Final Laboratory Results 09/11/20 10:23: POC Glucose 82 09/12/20 06:55: WBC 11.6 H, RBC 4.23 L, Hgb 10.8 L, Hct 35.1 L, MCV 83.0, MCH 25.5 L, MCHC 30.8 L, RDW Std Deviation TNP, RDW Coeff of Darius TNP, Plt Count 282, MPV 9.8 09/12/20 06:55: Sodium 132 L, Potassium 4.2, Chloride 99, Carbon Dioxide 26.0, Anion Gap 7, BUN 23 H, Creatinine 1.66 H, Estim Creat Clear Calc 49.47, Est GFR (MDRD) Af Amer 55 L, Est GFR (MDRD) Non-Af 45 L, BUN/Creatinine Ratio 13.9, Glucose 107 H, Calcium 8.3 L, Iron 41 L, TIBC 356, Iron Saturation 11.5 L, Ferritin 43 Current Medications Acetaminophen (Acetaminophen 500 Mg Tablet) 1,000 mg PO Q8 [facility] Last Admin: 09/12/20 05:11 Dose: 1,000 mg Documented by: Albuterol Sulfate (Albuterol 2.5 Mg/3 Ml Vial.Neb.) 2.5 mg INHALATION Q2H PRN PRN PRN Reason: Dyspnea, wheezing Aspirin (Aspirin 81 Mg Tab.Chew) 81 mg PO BIDCM [facility] Last Admin: 09/12/20 07:34 Dose: 81 mg Documented by: Enteral Nutritional Formula (Ensure Surgery 237 Ml Liquid) 237 ml PO TIDCM [facility] Last Admin: 09/11/20 18:37 Dose: 237 ml Documented by: Famotidine (Famotidine 20 Mg Tablet) 20 mg PO DAILY [facility] Last Admin: 09/12/20 07:35 Dose: 20 mg Documented by: Hydralazine HCl (Hydralazine 20 Mg/Ml Vial) 10 mg IV Q4H PRN PRN PRN Reason: SBP > 160 Sodium Chloride () 250 mls @ 15 mls/hr IV .[id number] PRN PRN Reason: Saline Flush Sodium Chloride () 250 mls @ 15 mls/hr IV .[id number] PRN PRN Reason: Additional IVPB Infusion Ketorolac Tromethamine (Ketorolac 15 Mg/Ml Vial) 15 mg IV Q6H PRN PRN PRN Reason: Pain Score 1-5 Stop: 09/13/20 07:42 Last Admin: 09/12/20 02:13 Dose: 15 mg Documented by: Morphine Sulfate (Morphine 2 Mg/Ml Syringe) 2 - 4 mg IV Q2H PRN PRN PRN Reason: Pain Score 4-10 Morphine Sulfate (Morphine 4 Mg/Ml Syringe) 2 - 4 mg IV Q2H PRN PRN PRN Reason: Pain Score 4-10 Ondansetron HCl (Ondansetron 4 Mg/2 Ml Vial) 4 mg IV Q8H PRN PRN PRN Reason: NAUSEA Oxycodone HCl (Oxycodone 5 Mg Tablet) 5 - 10 mg PO Q4H PRN PRN PRN Reason: Pain Score 4-10 Last Admin: 09/12/20 07:35 Dose: 10 mg Documented by: Promethazine HCl (Promethazine 25 Mg/Ml Syringe) 12.5 mg IM Q6H PRN PRN; Protocol PRN Reason: NAUSEA/VOMITING Senna/Docusate Sodium (Senna/Docusate Sodium 1 Tablet) 2 tablet PO BID [facility] Last Admin: 09/12/20 07:34 Dose: 2 tablet Documented by: Sodium Chloride (0.9% Nacl Peripheral Flush Adult/Peds) 5 - 15 ml IV UD PRN PRN Reason: SALINE FLUSH Last Admin: 09/12/20 07:35 Dose: 10 ml Documented by: Sodium Chloride (0.9% Saline Lock 10 Ml Syringe) 10 - 40 ml IV UD PRN PRN Reason: SALINE FLUSH Medical Necessity - Tobacco Use Smoking Status: Former smoker - Patient quit cigarette tobacco usage 02/2020 with prior to this 1/2 pack/day cigarette tobacco usage since he been a teenager. Tobacco Use: Non-smoker Assessment/Plan All Active Problems (Last Updated 08/09/19 @ 06:[address] Deejay Pederson MD) Chest pain (Acute) 1. S/P right direct anterior total hip arthroplasty POD #1 2. Continue Pain Medications: Tylenol and OxyIR 3. DVT Prophylaxis: Take 81 mg aspirin twice daily for 4 weeks postoperatively for DVT prophylaxis 4. PT/OT: Weightbearing as tolerated 5. H & H: 10.8/35.1, asymptomatic. Postoperative anemia secondary to acute blood loss from surgery without any intra operative complications. 6. Reactive leukocytosis: Currently 11.6, afebrile. Patient did receive Decadron intraoperatively 7. Continue postoperative medical management per medicine 8. Encouraged Incentive Spirometry 9. Disposition: Orthopedically stable, plan will be for discharge home today as long as pain is well controlled and patient tolerates physical therapy. Patient will follow postop instructions. Patient does wish to proceed with home health therapy. Case management is involved and will assist. Prescriptions will be E scribed to [facility]. I have reviewed the [place] Automated Rx Reporting System (OARRS) report for this patient for refill pattern and other prescriber involvement as part of the appropriate surveillance for the provision of acute and chronic controlled medications. The report was requested and reviewed on the date of this entry and was considered in the prescribing process.
--- NOTE | 2020-09-12 08:56 | DCINST_ITS ---
Discharge Diet: No Restrictions Discharge Activity: May Not Drive - while taking narcotic pain medications. May shower in (days): 1 - Okay to shower if dressing is intact to skin. Turn dressing away from water. Do not submerge underwater for 6 weeks postoperatively. Ice area for (Minutes): 20 - Every 1-2 hours while awake Weight Bearing Status: Weight bearing as tolerated Elevate: Operative Extremity Additional Activity Instructions:: Wear elastic stockings for 2 weeks. DO NOT use alcohol with narcotic pain medication. DO NOT make important decisions while taking narcotic medication. If you have problems with taking your medication (rash, itching, nausea, etc.) call the office at once. Call your doctor if your incision/area has: Increased Pain/ Swelling, Increased Redness, Foul Smelling Discharge Call your doctor if you observe: Fever of 101 or Higher Remove Dressing in (days):: 4 - Okay to remove on September 16, 2020 Additional Instructions: Follow [facility] Post-op Instructions. Once postoperative dressing has been removed only use gentle soap and water over the incision. Do not use any ointments, Neosporin, salves, alcohol pads over the incision for 6 weeks postoperatively. Do not submerge underwater for 6 weeks postoperatively. Allergies/Adverse Reactions: Allergies Cephalosporins Allergy (Verified 09/11/20 10:39) Shortness of breath Penicillins [PCN] Allergy (Verified 09/11/20 10:39) Rash naproxen Adverse Reaction (Verified 09/11/20 10:39) syncope Medications to take at Discharge ALPRAZolam [Xanax] 1 mg PO QHS 08/08/19 Atenolol 50 mg PO DAILY 08/08/19 Omeprazole Magnesium [Prilosec Otc] 20 mg PO QHS 08/14/20 Sucralfate [Carafate] 1 gm PO TID 08/14/20 Amlodipine [Norvasc] 5 mg PO DAILY 09/11/20 Ferrous Sulfate 325 mg PO DAILY 09/11/20 Folic Acid 1 mg PO DAILY 09/11/20 Acetaminophen [Tylenol] 1,000 mg PO Q8 #100 tab 09/12/20 Aspirin [Aspirin, Baby] 81 mg PO BIDCM #60 tab 09/12/20 Oxycodone [Oxyir] 5 - 10 mg PO Q4H PRN PRN 4 Days #48 tablet 09/12/20 Senna/Docusate Sodium [Senokot-S] 2 tab PO BID #14 tab 09/12/20 The following prescriptions were given: Aspirin [Aspirin, Baby] 81 mg PO BIDCM #60 tab Transmission Status: Pending to [facility] Oxycodone [Oxyir] 5 - 10 mg PO Q4H PRN PRN 4 Days #48 tablet PRN Reason: Pain Score 4-10 Transmission Status: Sent to [facility] Senna/Docusate Sodium [Senokot-S] 2 tab PO BID #14 tab Transmission Status: Pending to [facility] Acetaminophen [Tylenol] 1,000 mg PO Q8 #100 tab Transmission Status: Pending to [facility] Orders to be completed after discharge: MISSAEL RIZZO (RN COLLECT) Time Frame: 08/27/20, Facility: [facility], Location: Laboratory Primary Care Physician: Salas Moore MD [Primary Care Provider] - Please follow up with your Primary Care Physician in: 2 weeks Test Results: Test results from this visit will be discussed in further detail at your follow- up appointment, if applicable. Please Follow Up With: home health physical therapy Please Follow Up With: Delvin Rios PA-C When: 09/25/20 @ 11:00 am
--- NOTE | 2020-09-12 09:20 | CASEMGMT ---
REYMUNDO BUSTILLOS Face to Face with patient for initial transition planning/care coordination assessment. RN CM introduced self and role at [facility]. Patient sitting in chair, alert and oriented. Patient willing to participate in assessment and is able to answer all questions appropriately. Care providers, pharmacy, and demographics verified. Patient wishes to discharge home and is requesting home therapy. Patient would like [facility] after reviewing options. RN CM sent referral to [facility] and they are able to accept the patient. RN CM updated patient regarding acceptance of [facility]. Patient states he has no further needs or concerns at this time. CM to follow for discharge planning needs that may arise. PCP: Oscar Specialists: frankie Rocha Pharmacy: [facility] Insurance: [employer] Prescription Benefit: none Living Will/HPOA: yes, son Arnel Casas LNOK: , son Living Arrangements: Patient lives with in a 2 story home with bath on first floor, bedroom on second floor. Patient states he was independent at home. Transportation: Driving service DME/HHC: Patient states he has walker, cane, crutches at home. Patient is setup with [facility] for at home. Disposition Plan: Patient to discharge home with home therapy, family support and follow-up plans in place. Lisa MONROE, RN, CM
--- NOTE | 2020-09-12 12:04 | PHA.DC.MC ---
Pharmacy Service has performed discharge medication reconciliation and counseling for this patient. 1. ASPIRIN 81MG PO BIDCM 2. ACETAMINOPHEN 1000MG PO Q8H 3. SENNA/DOCUSATE 2T PO BID UNTIL FIRST BM, THEN PRN CONSTIPATION 4. OXYCODONE 5-10MG PO Q4H PRN PAIN The patient's discharge medication list was reviewed for discrepancies and discrepancies were resolved. Home Medications ALPRAZolam [Xanax] 1 mg PO QHS 08/08/19 Atenolol 50 mg PO DAILY 08/08/19 Omeprazole Magnesium [Prilosec Otc] 20 mg PO QHS 08/14/20 Sucralfate [Carafate] 1 gm PO TID 08/14/20 Amlodipine [Norvasc] 5 mg PO DAILY 09/11/20 Ferrous Sulfate 325 mg PO DAILY 09/11/20 Folic Acid 1 mg PO DAILY 09/11/20 Acetaminophen [Tylenol] 1,000 mg PO Q8 #100 tab 09/12/20 Aspirin [Aspirin, Baby] 81 mg PO BIDCM #60 tab 09/12/20 Oxycodone [Oxyir] 5 - 10 mg PO Q4H PRN PRN 4 Days #48 tab 09/12/20 Senna/Docusate Sodium [Senokot-S] 2 tab PO BID #14 tab 09/12/20 The patient was counseled on the following discharge medications and changes in medications for homegoing were reviewed. The Reason for Use, instructions for use, and potential side effects were reviewed for all new medications. The patient's questions regarding all of their medications were answered. The patient was able to verbally demonstrate an understanding of their discharge medications.
[2020-09-12 12:41] VITALS: BP 107/74; PULSE 73; RESP 16; TEMP 36.8; O2SAT 97
== END 2020-09-12 14:10 | disposition home or self-care (01) ==
LOC: MS3 12:37
PROVIDERS: Anesthesiology; Admitting Provider Specialist; PCP Family Medicine; Referring Provider Specialist; Visit Provider Internal Medicine
PROC: 8E0Y0CZ Robotic Assisted Procedure of Lower Extremity, Open Approach (ICD-10-PCS; CPT 27130; principal; 2020-09-11 10:45)
DX: M16.11 Unilateral primary osteoarthritis, right hip (principal); Z20.828 Contact with and (suspected) exposure to other viral communicable diseases; M87.88 Other osteonecrosis, other site; Z98.1 Arthrodesis status; F41.9 Anxiety disorder, unspecified; K21.9 Gastro-esophageal reflux disease without esophagitis; K44.9 Diaphragmatic hernia without obstruction or gangrene; I12.9 Hypertensive chronic kidney disease with stage 1 through stage 4 chronic kidney disease, or unspecified chronic kidney disease; N18.30 Chronic kidney disease, stage 3 unspecified; E78.5 Hyperlipidemia, unspecified; Z86.2 Personal history of diseases of the blood and blood-forming organs and certain disorders involving the immune mechanism; Z87.19 Personal history of other diseases of the digestive system; Z79.899 Other long term (current) drug therapy; Z87.891 Personal history of nicotine dependence; Z87.11 Personal history of peptic ulcer disease; D50.9 Iron deficiency anemia, unspecified; G25.81 Restless legs syndrome
CPT/HCPCS: 01214; 27130; S2900; 36415; 73501; 73502; 76000; 80048; 82728; 82962; 83540; 83550; 83735; 85025; 85027; 87081; 87426; 88307; 88311; 93005; 96361; 96365; 96366; 96367; 96375; 97110; 97116; 97162; 97166; 97530; 97535; 99218; 99251; C1776; C9803; J7050; J7120; A4216; G0378; G0379; G0463; J2405

== ENCOUNTER 2023-07-29 17:52 | Emergency (ER) | payer OTHER, SELFPAY ==
[2023-07-29 17:53] VITALS: BP 126/83; PULSE 102; RESP 14; TEMP 36.4; O2SAT 94; BMI 31.4
--- NOTE | 2023-07-29 18:09 | EKG12_ITS ---
Test Reason : Blood Pressure : / mmHG Vent. Rate : 099 BPM Atrial Rate : 099 BPM P-R Int : 168 ms QRS Dur : 086 ms QT Int : 364 ms P-R-T Axes : 060 044 024 degrees QTc Int : 467 ms Normal sinus rhythm Normal ECG Confirmed by MARY ZHOU MD ([id number]), associate entertainment editor BARBI VELEZ ([id number]) on 07/30/2023 9:35:40 AM Referred By: RITU Confirmed By:MARY ZHOU MD
--- NOTE | 2023-07-29 18:11 | ED.VIS.CHEST ---
HPI History of Present Illness Chief Complaint: Chest Pain Narrative Narrative: 63-year-old male past medical history of peptic ulcer disease, hypertension, avascular necrosis of the hip, had hip surgery today performed by Dr. Rocha. While he was in the PACU, getting ready to go home, he complained of epigastric burning and pain. States has had ulcers in the past and takes Prilosec once a day for it. He was given IV Pepcid and his symptoms have resolved. However, given his recent surgery and his chest pain and burning sensation, he was sent to the emergency department for evaluation. Once again, he denies any current pain or burning. He was nauseated but did not vomit. No shortness of breath or diaphoresis. No exacerbating or alleviating factors. [facility] Medical History GERD (gastroesophageal reflux disease) HTN (hypertension) Home Medications alprazolam 1 mg tablet 1 mg PO QHS insomnia 08/08/19 [History Last Taken 08/07/19] atenolol 50 mg tablet 50 mg PO DAILY 08/08/19 [History Last Taken 08/08/19] omeprazole magnesium 20 mg tablet,delayed release 20 mg PO QHS 08/14/20 [History Last Taken Unknown] sucralfate 1 gram tablet 1 gm PO TID 08/14/20 [History Last Taken Unknown] amlodipine 5 mg tablet 5 mg PO DAILY 09/11/20 [History Last Taken Unknown] ferrous sulfate 325 mg (65 mg iron) tablet 325 mg PO DAILY 09/11/20 [History Last Taken Unknown] folic acid 1 mg tablet 1 mg PO DAILY 09/11/20 [History Last Taken Unknown] acetaminophen 500 mg tablet 1,000 mg (2 x 500 mg) PO Q8 #100 tabs 09/12/20 [Rx Last Taken Unknown] aspirin 81 mg chewable tablet 81 mg PO BIDCM #60 tabs 09/12/20 [Rx Last Taken Unknown] sennosides 8.6 mg-docusate sodium 50 mg tablet 2 tab PO BID #14 tabs 09/12/20 [Rx Last Taken Unknown] Allergy/AdvReac Type Severity Reaction Status Date / Time Cephalosporins Allergy Shortness Verified 07/29/23 17:53 of breath Penicillins [PCN] Allergy Rash Verified 07/29/23 17:53 naproxen AdvReac syncope Verified 07/29/23 17:53 Surgical History History of total left hip replacement Social History Smoking Status: Former smoker ROS ROS ED ROS Narrative Constitutional: No fever, no chills. HEENT: No sore throat. No neck pain. No loss of vision. No rhinorrhea. Cardiovascular: Positive burning chest pain. No palpitations. No pedal edema. Respiratory: No cough, no shortness of breath. Abdominal: Epigastric burning abdominal pain. Positive nausea. No vomiting. Genitourinary: No dysuria. No hematuria. Musculoskeletal: No myalgias. No arthralgias. Neurologic: No headaches. No dizziness. No lightheadedness. Skin: No rash. No change in color. Psychiatric: No depression. No anxiety. EXAM Physical Exam Narrative Exam Narrative: Afebrile. Vital signs noted. HEENT: Normocephalic. Atraumatic. PERRL, EOMI. Neck soft and supple. No point tenderness or step off. Cardiovascular: Regular rate and rhythm. No murmurs, rubs, or gallops appreciated. Respiratory: No tachypnea. Lungs clear to auscultation bilaterally. Gastrointestinal: Abdomen soft, nontender, with normoactive bowel sounds. No rebound or guarding. Neurological: Awake. Alert. Nonfocal, nonlateralizing. Skin: No rash. Normal color. No pallor. Musculoskeletal: No pedal edema. Full range of motion extremities. Left hip with dressing clean, dry, and intact without significant bleeding, no significant ecchymosis of left hip. Const Vital Signs: 07/29/23 17:53 07/29/23 18:06 07/29/23 18:16 Temperature 97.6 F L Temperature Source Temporal Pulse Rate 102 H Respiratory Rate 14 Respiratory Effort Normal Non-Labored Blood Pressure 126/83 H Blood Pressure Mean 97 Pulse Ox 94 96 Oxygen Delivery Method Room Air Room Air 07/29/23 20:22 Temperature Temperature Source Pulse Rate 104 H Respiratory Rate 18 Respiratory Effort Blood Pressure 125/85 H Blood Pressure Mean 98 Pulse Ox 96 Oxygen Delivery Method Room Air Heart Score History: Slightly/Non-Suspicious ECG: Normal Age: >45 - <65 years Risk Factors: 1 or 2 Risk Factors Score: 2 MDM MDM MDM Narrative Medical decision making narrative: In the differential diagnosis would be ACS versus peptic ulcer disease versus pancreatitis. I have lower suspicion for ACS as he just had surgery and it was more of a burning sensation. Additionally, EKG was obtained and interpreted by myself as normal sinus rhythm at 99 bpm without ectopy or acute ST changes. No STEMI. I feel this helps rule out cardiac ischemia. Serial troponins will be obtained. I will also add a CBC, CMP, and lipase. I reviewed his laboratory work, and he has a normal white count of 9.2, hemoglobin stable at 12.9, platelet count normal at 278. Review of his electrolyte panel reveals chloride slightly elevated at 109 which I think is nonspecific, BUN of 22 and creatinine 1.43, however the patient has history of chronic kidney disease and this is below his baseline creatinine. Glucose is appropriately elevated at 233, but he has a normal anion gap of 7 so I have low concern for diabetic ketoacidosis. Lipase is normal at 42, so I feel pancreatitis has been ruled out. Patient is pain-free regarding his burning sensation and he states it feels more like his peptic ulcer disease. His initial high-sensitivity troponin is 8 with a repeat at 9 4 and acceptable delta troponin. Chest x-ray in 1 view interpreted by myself independently shows no evidence of pneumonia or pneumothorax. I reviewed the radiology report which confirms my independent interpretation. At this point in time, the plan was for him to be discharged from the PACU to go home with his walker and take his pain medications. He is to follow-up with Dr. Rocha on August 11, approximately 2 weeks from now. I did discuss patient with Dr. Lane Thomas to let him know that the patient was seen in the emergency department for chest pain. Patient's incision is dressed and appears clean, dry, and intact without significant bleeding. I feel he can be discharged safely home with follow-up to his primary care provider and to Dr. Rocha for his orthopedic surgery. Return instructions to the emergency department were reviewed. I do not feel that the patient requires observation or admission at this time. Disposition is discharged home in stable condition. History & Record Review Discussion w/independent historian: Patient and Family Additional record(s) reviewed:: Prior ED visit and Prior labs Lab Data Attestation: I reviewed the patient's lab results. Labs: Laboratory Results - last 24 hr 07/29/23 07/29/23 18:05 20:15 WBC 9.2 RBC 4.35 L Hgb 12.9 L Hct 40.5 MCV 93.1 MCH 29.7 MCHC 31.9 L RDW Std Deviation 45.0 H RDW Coeff of Darius 13.2 Plt Count 278 MPV 9.7 Immature Gran % (Auto) 0.600 Neut % (Auto) 92.8 H Lymph % (Auto) 3.9 L [place] % (Auto) 2.2 Eos % (Auto) 0.1 Baso % (Auto) 0.4 Absolute Neuts (auto) 8.6 H Absolute Lymphs (auto) 0.36 L Nucleated RBC % 0 Differential Comment SCANNED Sodium 140 Potassium 3.8 Chloride 109 H Carbon Dioxide 24.0 Anion Gap 7 BUN 22 H Creatinine 1.43 H Estim Creat Clear Calc 44.85 Est GFR (MDRD) Af Amer 64 Est GFR (MDRD) Non-Af 53 L BUN/Creatinine Ratio 15.4 Glucose 233 H Calcium 8.3 L Total Bilirubin 0.30 AST 48 H ALT 39 Alkaline Phosphatase 114 Troponin I High Sens 8 9 Total Protein 6.6 Albumin 3.1 L Globulin 3.5 Albumin/Globulin Ratio 0.9 Lipase 42 Radiography Diagnostic Testing: Clinical Impression(s) from Imaging Studies Chest X-Ray 07/29/23 18:20 IMPRESSION: No radiographic evidence of acute cardiopulmonary disease. Electronically Signed: Sanket Darden MD at 19:04 EST Reading Location ID and State: [facility] / [place] Tel , Service support , Discharge Plan Triage Chief Complaint: Chest Pain ED Provider: Seth Cade Dx/Rx/DC Orders Clinical Impression: GERD (gastroesophageal reflux disease), Chest pain, Peptic ulcer disease Instructions: ED Chest Pain, Noncardiac, ED Chest Pain, Uncertain Cause, ED PUD Prescriptions: No Action alprazolam 1 MG tablet 1 mg PO QHS atenolol 50 MG tablet 50 mg PO DAILY omeprazole magnesium 20 MG tablet,delayed release (DR/EC) 20 mg PO QHS sucralfate 1 GM tablet 1 gm PO TID Rx Instructions: before meals amlodipine 5 MG tablet 5 mg PO DAILY ferrous sulfate 325 MG tablet 325 mg PO DAILY folic acid 1 MG tablet 1 mg PO DAILY sennosides-docusate sodium 1 TABLET tablet 2 tab PO BID Qty: 14 0RF Rx Instructions: Take until first bowel movement, then as needed acetaminophen 500 MG tablet 1,000 mg PO Q8 Qty: 100 0RF Rx Instructions: Do not take more than 3000 mg Tylenol in a 24-hour period. aspirin 81 MG tablet,chewable 81 mg PO BIDCM Qty: 60 0RF Rx Instructions: Take 81 mg aspirin twice daily for 4 weeks postoperatively for DVT prophylaxis Primary Care Provider: Salas Moore Referrals: Ari Rocha MD [Med Staff - Active Staff] - Keep [place] appointment Salas Moore MD [Primary Care Provider] - As soon as possible Activity Restrictions/Additional Instructions: Follow-up with your primary care provider and continue your Prilosec as directed for your peptic ulcer disease/GERD. Follow-up with Dr. Rocha as scheduled for your left hip surgery that was performed today. Disposition Disposition: Home, Self Care
[2023-07-29 18:16] VITALS: O2SAT 96
[2023-07-29 18:19] LABS: Absolute Lymphocyte Count 0.36 X10^3/uL (0.83-4.51); Absolute Neutrophil Count 8.6 X10^3/uL (2.0-7.7); Basophil# 0.04 X10^3/uL; Basophil% 0.4 % (0-1); Eosinophil# 0.01 X10^3/uL; Eosinophils% 0.1 % (0-5); Hematocrit 40.5 % (40-54); Hemoglobin 12.9 g/dL (13.0-16.5); Lymphocyte # 0.36 X10^3/ul (0.83-4.51); Lymphocyte % 3.9 % (19-41); Mean Corp Hgb Conc 31.9 g/dL (32-36); Mean Corpuscular Hgb 29.7 pg (27.0-32.0); Mean Corpuscular Volume 93.1 fL (80-94); Mean Platelet Vol. 9.7 fl (6.2-12.0); Monocyte% 2.2 % (0-10); NRBC Flagged by Analyzer 0 % (0-5); Neutrophil # 8.57 X10^3/uL (2.7-7.7); Neutrophil % 92.8 % (47-70); POSITIVE DIFFERENTIAL YES; Platelet Count 278 K/mm3 (150-450); RBC Distribution Width CV 13.2 % (11.6-14.6); Red Blood Count 4.35 M/mm3 (4.6-6.2); White Blood Count 9.2 K/mm3 (4.4-11.0)
--- NOTE | 2023-07-29 18:20 | RAD_ITS ---
INDICATION: chest pain EXAMINATION/TECHNIQUE: X-RAY - portable upright AP chest x-ray COMPARISON: 08/09/2019 FINDINGS: LINES/DEVICES: Thoracic stimulator lead. LUNGS: No consolidation, edema or effusion. No pneumothorax. MEDIASTINUM AND CARDIOVASCULAR STRUCTURES: Cardiac silhouette not enlarged. Central airways and mediastinal contour are unremarkable. BONES AND SOFT TISSUES: No acute changes. RAD/Chest 1 View (Portable) IMPRESSION: No radiographic evidence of acute cardiopulmonary disease. Electronically Signed: Sanket Darden MD at 19:04 EST ,
[2023-07-29 18:21] LABS: Differential Indicated SCAN CRITERIA MET
[2023-07-29 18:41] LABS: ALB/GLOB Ratio 0.9 RATIO (0.9-2.4); AST(SGOT) 48 U/L (15-37); Alanine Aminotransfer ALT/SGPT 39 U/L (16-61); Albumin, Serum 3.1 g/dL (3.2-5.0); Alkaline Phosphatase 114 U/L (45-117); Anion Gap 7 (5-15); BUN 22 mg/dL (7-18); BUN/Creat Ratio 15.4 RATIO (10-20); Calcium,Total 8.3 mg/dL (8.5-10.1); Chloride 109 mmol/L (98-107); Creatinine, Serum 1.43 mg/dL (0.70-1.30); EST Glomerular Filtration Rate 53 mL/min (>60); Est Glom Filt Rate - Afr Amer 64 mL/min (>60); Estimated Creatinine Clearance 44.85 ml/min; Globulin 3.5 g/dL (2.2-4.2); Glucose 233 mg/dL (74-106); Lipase 42 U/L (13-75); Potassium 3.8 mmol/L (3.5-5.1); Protein, Total 6.6 g/dL (6.4-8.2); Sodium Level 140 mmol/L (136-145); Troponin-I HS (w/2H Reflex) 8 pg/mL (3.0-78.0)
[2023-07-29 18:43] LABS: Differential Comment SCANNED
[2023-07-29 20:16] LABS: Reflex Troponin-HS? (from REC) Y
[2023-07-29 20:22] VITALS: BP 125/85; PULSE 104; RESP 18; O2SAT 96
[2023-07-29 21:03] LABS: Troponin-I HS 9 pg/mL (3.0-78.0)
[2023-07-29 22:02] VITALS: BP 129/68; PULSE 64; RESP 17; O2SAT 98
== END 2023-07-29 22:03 | disposition home or self-care (01) ==
PROVIDERS: Emergency Provider Emergency Medicine; PCP Family Medicine; Visit Provider Emergency Medicine
DX: R07.9 Chest pain, unspecified (principal); K21.9 Gastro-esophageal reflux disease without esophagitis; K27.9 Peptic ulcer, site unspecified, unspecified as acute or chronic, without hemorrhage or perforation; I12.9 Hypertensive chronic kidney disease with stage 1 through stage 4 chronic kidney disease, or unspecified chronic kidney disease; N18.9 Chronic kidney disease, unspecified; Z87.891 Personal history of nicotine dependence; Z79.899 Other long term (current) drug therapy; Z79.82 Long term (current) use of aspirin; Z96.642 Presence of left artificial hip joint
CPT/HCPCS: 71045; 80053; 83690; 84484; 85025; 93005; 99285; A4216